=== PATIENT | male | born 1950 | race Caucasian/White ===

== ENCOUNTER 2018-08-21 14:40 | Inpatient (IN) | payer OTHER ==
--- NOTE | 2018-08-21 16:34 | PDOC ---
History of Present Illness - General Chief Complaint: Pain, Acute Stated Complaint: HERNIA/ABD PAIN Time Seen by Provider: 08/21/18 16:34 History Source: Patient Exam Limitations: Other - History of Present Illness Initial Comments: 08/21/18 17:05 HPI and ROS limited secondary to poor patient compliance. 67 year old male with unknown PMH on Eliquis presented to ED for pain at his umbilical hernia site xmany months, worsening over the last two days. Pt reported the hernia will reduce. Pt denied nausea, vomiting, diarrhea, chest pain, shortness of breath, fever, chills. When asked further about his medical history including why he is on Eliquis he stated "Come on Miss, what kind of question is that?". Pt reported he was seen at [facility] 30 times this year, when asked what he was seen for he stated "Come on Miss, what kind of question is that?" Surgical history: hernia repair x3 Past History - Past Medical History Allergies/Adverse Reactions: Allergies Allergy/AdvReac Type Severity Reaction Status Date / Time No Known Allergies Allergy Verified 08/21/18 14:54 Home Medications: Ambulatory Orders Amiodarone HCl 200 mg PO DAILY 08/21/18 Apixaban [Eliquis -] 5 mg PO BID 08/21/18 Atorvastatin Ca [Lipitor] 20 mg PO HS 08/21/18 Digoxin [Digitek] 125 mcg PO DAILY 08/21/18 Metoprolol Tartrate [Lopressor -] 25 mg PO DAILY 08/21/18 Simethicone [Gas Relief 80] 80 mg PO TID 08/21/18 Spironolactone 25 mg PO DAILY 08/21/18 Torsemide 60 mg PO BID 08/21/18 Cardiac Disorders: Yes (ppmd NM) COPD: No HTN: Yes - Surgical History Abdominal Surgery: Yes (hernia) Cardiac Surgery: Yes (aortic vaulve replacement) - Suicide/Smoking/Psychosocial Hx Smoking History: Former smoker Have you smoked in the past 12 months: No Information on smoking cessation initiated: No Hx Alcohol Use: No Drug/Substance Use Hx: No Review of Systems - Review of Systems Able to Perform ROS?: Yes Comments:: 08/21/18 17:06 General: denied fever, chills, generalized weakness. HEENT: denied sore throat, rhinorrhea, ear pain. Heart: denied chest pain, palpitations, syncope, diaphoresis. Respiratory: denied shortness of breath, cough, sputum production, hemoptysis. Abdomen: admitted to abdominal pain. denied nausea, vomiting, diarrhea, constipation, blood in stool. : denied dysuria, increased urinary frequency, hematuria, urinary incontinence , flank pain. Back: denied back pain. Musculoskeletal: denied joint pain, muscle pain, joint swelling. Neurological: denied headache, dizziness, numbness, tingling, weakness. Skin: denied rash, laceration, abrasion. *Physical Exam - Vital Signs Last Vital Signs Temp Pulse Resp BP Pulse Ox 98.4 F 65 20 100/73 95 08/21/18 14:55 08/21/18 14:55 08/21/18 14:55 08/21/18 14:55 08/21/18 14:55 - Physical Exam Comments: 08/21/18 17:07 Constitutional: Well-nourished, Well-developed, appearing stated age. HEENT: head is normocephalic, atraumatic. EOMI. PERRLA. Neck: supple. Full ROM. Heart: regular rhythm. no murmurs, rubs or gallops. Lungs: clear to auscultation bilaterally. no crackles, rhonchi or wheezing. no stridor. Abdomen: soft, protuberant. umbilical hernia, will reduce. tenderness to umbilicus. normal bowel sounds. no rebound, guarding, masses. Extremities: peripheral pulses intact. no lower extremity edema. Neurological: CN 2-12 grossly intact. moves all four extremities. Psych: awake, alert, oriented x3. follows commands. answers questions appropriately. ED Treatment Course - LABORATORY CBC & Chemistry Diagram: 08/22/18 05:24 08/22/18 05:24 Medical Decision Making - Medical Decision Making 08/21/18 17:14 67 year old male with unknown PMH presented to ED for umbilical hernia pain. Hernia will reduce on examination. Initial Vital Signs Temp Pulse Resp BP Pulse Ox 98.4 F 65 20 100/73 95 08/21/18 14:55 08/21/18 14:55 08/21/18 14:55 08/21/18 14:55 08/21/18 14:55 Afebrile. No tachycardia. No tachypnea. Mild hypotension. No hypoxia on room air. EKG performed 1658: rate 65, left axis, ventricular pacer rhythm, lateral T wave flattening. No prior EKG to compare. Imaging ordered: CXR, CT abdomen/pelvis with IV contrast Medications ordered: tylenol IV, normal saline bolus 1000 cc CBC WBC 6.1 K/mm3 (4.0-10.0) 08/21/18 16:55 RBC 4.36 M/mm3 (4.00-5.60) 08/21/18 16:55 Hgb 13.2 GM/dL (11.7-16.9) 08/21/18 16:55 Hct 41.0 % (35.4-49) 08/21/18 16:55 MCV 94.0 fl (80-96) 08/21/18 16:55 MCH 30.2 pg (25.7-33.7) 08/21/18 16:55 MCHC 32.2 g/dl (32.0-35.9) 08/21/18 16:55 RDW 18.5 % (11.9-15.9) H 08/21/18 16:55 Plt Count 165 K/MM3 (134-434) 08/21/18 16:55 MPV 8.7 fl (7.5-11.1) 08/21/18 16:55 Absolute Neuts (auto) 4.7 K/mm3 (1.5-8.0) 08/21/18 16:55 Neutrophils % 76.7 % (42.8-82.8) 08/21/18 16:55 Lymphocytes % 9.8 % (8-40) 08/21/18 16:55 Monocytes % 11.9 % (3.8-10.2) H 08/21/18 16:55 Eosinophils % 0.9 % (0-4.5) 08/21/18 16:55 Basophils % 0.7 % (0-2.0) 08/21/18 16:55 Nucleated RBC % 0 % (0-0) 08/21/18 16:55 No leukocytosis. No anemia. 08/21/18 17:41 CMP Sodium 138 mmol/L (136-145) 08/21/18 16:55 Potassium 4.1 mmol/L (3.5-5.1) 08/21/18 16:55 Chloride 102 mmol/L (98-107) 08/21/18 16:55 Carbon Dioxide 26 mmol/L (21-32) 08/21/18 16:55 Anion Gap 10 MMOL/L (8-16) 08/21/18 16:55 BUN 33 mg/dL (7-18) H 08/21/18 16:55 Creatinine 2.2 mg/dL (0.55-1.3) H 08/21/18 16:55 Est GFR (CKD-EPI)AfAm 34.64 08/21/18 16:55 Est GFR (CKD-EPI)NonAf 29.89 08/21/18 16:55 Random Glucose 87 mg/dL (74-106) 08/21/18 16:55 Lactic Acid 2.6 mmol/L (0.4-2.0) H* 08/21/18 16:55 Calcium 9.0 mg/dL (8.5-10.1) 08/21/18 16:55 Magnesium 2.5 mg/dL (1.8-2.4) H 08/21/18 16:55 Total Bilirubin 2.7 mg/dL (0.2-1) H 08/21/18 16:55 AST 22 U/L (15-37) 08/21/18 16:55 ALT 19 U/L (13-61) 08/21/18 16:55 Alkaline Phosphatase 161 U/L (45-117) H 08/21/18 16:55 Troponin I 0.03 ng/ml (0.00-0.05) 08/21/18 16:55 Total Protein 7.0 g/dl (6.4-8.2) 08/21/18 16:55 Albumin 3.2 g/dl (3.4-5.0) L 08/21/18 16:55 Lipase 101 U/L (73-393) 08/21/18 16:55 ERIK -No prior to compare Lactic acidosis -IVF running Normal lipase No clinically significant electrolyte abnormalities Elevated bilirubin Elevated ALP CT abdomen/pelvis with IV contrast canceled. CT abdomen/pelvis with PO contrast ordered. 08/21/18 18:44 Pt reassessed, reported pain improved. Pt was not drinking omnipaque, reported it was "taken away from me" Pt given additional omnipaque. 08/21/18 18:57 CXR report: Chest : Abdominal pain A single AP view of the chest is been submitted. There are no prior studies for comparison. There is chin artifact, normal heart, normal aorta, prominent hilar congestive changes, sternal sutures and a multilead pacemaker. There is a right effusion and right base atelectasis or infiltrate. The left angle is sharp. Correlation recommended. 08/21/18 19:14 Pt signed out to Dr. Rudolph Pending CT abdomen/pelvis to rule out incarcarated hernia. Pending fluid hydration and repeat lactic acid. BNP added on. [facility] was called, reported they have two critical patients and cannot come to the phone right now. 08/22/18 16:05 Follow up: CT abdomen/pelvis report: Clinical information: umbilical hernia pain, evaluate for strangulation Multiplanar imaging was performed utilizing oral contrast. As requested intravenous contrast was not administered. An umbilical/periumbilical hernia is seen containing a mildly small bowel loop. No proximal bowel dilatation is visualized. Administered oral contrast is noted to traverse the small bowel and opacify the colon. There is no obvious small bowel wall edema. A small amount of ascitic fluid is seen within the hernia sac as well as within the upper and lower abdomen bilaterally. There is partial imaging of a right pleural effusion which is probably moderate to large in size. A very small left pleural effusion is seen. Cardiomegaly is noted. Status post median sternotomy. Transvenous cardiac pacemaker in place. Distention of the hepatic veins and inferior vena cava is noted presumably secondary to cardiac dysfunction. Prominent bilateral flank subcutaneous edema. Subcutaneous edema is also visualized at the level of the partially imaged upper thighs. No evidence of pneumoperitoneum. Possible cholelithiasis versus representing gallbladder wall calcification. No biliary tract dilatation is visualized. The liver, spleen, pancreas, adrenal glands and kidneys demonstrate no obvious noncontrast pathology. There is no aortic aneurysm. No obvious lymphadenopathy is seen. The appendix appears unremarkable. No obvious CT evidence of acute diverticulitis. Impression: A moderate-sized umbilical/periumbilical hernia is seen containing a mildly dilated small bowel loop. There is no definite CT evidence of bowel strangulation. Correlate clinically. Administered oral contrast is seen to traverse length of the small bowel and opacify the colon. A small amount of ascites is seen within the abdomen, pelvis and also within the previously noted hernia sac. Moderate to large right-sided and very small left-sided pleural effusions are seen. Cardiomegaly is noted. Bilateral flank subcutaneous edema. Status post median sternotomy. Transvenous cardiac pacemaker in place. Possible cholelithiasis versus representing gallbladder wall calcification. *DC/Admit/Observation/Transfer Diagnosis at time of Disposition: ERIK (acute kidney injury), CHF exacerbation Umbilical hernia Qualifiers: Obstruction and gangrene presence: without obstruction or gangrene Qualified Code(s): K42.9 - Umbilical hernia without obstruction or gangrene - Discharge Dispostion Condition at time of disposition: Guarded - Referrals - Patient Instructions - Post Discharge Activity
[2018-08-21] MEDS ORDERED: SODIUM CHLORIDE 1,000 ML IV STA (16:36)
[2018-08-21] MEDS ORDERED: ACETAMINOPHEN 1000 MG/100 ML VIAL (NON FORMULARY) IVPB ONE (16:36)
[2018-08-21] MEDS ORDERED: ACETAMINOPHEN INJECTION 100 ML IVPB ONE (17:03)
[2018-08-21 17:07] LABS: BASO % 0.7 % (0-2.0); EOS % 0.9 % (0-4.5); HEMOGLOBIN 13.2 GM/dL (11.7-16.9); LYMPH % 9.8 % (8-40); MCH 30.2 pg (25.7-33.7); MCHC 32.2 g/dl (32.0-35.9); MEAN PLT VOLUME 8.7 fl (7.5-11.1); MONO % 11.9 % (3.8-10.2); NEUT % 76.7 % (42.8-82.8); PLATELET COUNT 165 K/MM3 (134-434); RBC 4.36 M/mm3 (4.00-5.60); RDW 18.5 % (11.9-15.9); WHITE BLOOD COUNT 6.1 K/mm3 (4.0-10.0)
[2018-08-21 17:33] LABS: INR 1.87 (0.83-1.09); PROTHROMBIN TIME (PATIENT) 22.2 SEC (9.7-13.0)
[2018-08-21 17:35] LABS: ALBUMIN 3.2 g/dl (3.4-5.0); BILIRUBIN,TOTAL 2.7 mg/dL (0.2-1); CREATININE 2.2 mg/dL (0.55-1.3)
[2018-08-21 17:36] LABS: ACTIVATED PTT 38.1 SECONDS (25.2-36.5); MAGNESIUM 2.5 mg/dL (1.8-2.4); POTASSIUM 4.1 mmol/L (3.5-5.1)
--- NOTE | 2018-08-21 19:02 | PDOC ---
Documentation entered by Edelmira French SCRIBE, acting as scribe for Tomas Menon MD. Tomas Menon MD: This documentation has been prepared by the scribe, Edelmira French SCRIBE, under my direction and personally reviewed by me in its entirety. I confirm that the documentation accurately reflects all work, treatment, procedures, and medical decision making performed by me. Attending Attestation - Resident Resident Name: PerlitaMoriah - ED Attending Attestation I have performed the following: I have examined & evaluated the patient, The case was reviewed & discussed with the resident, I agree w/resident's findings & plan, Exceptions are as noted - HPI HPI: 08/21/18 17:41 The patient is a 67-year-old male with a past medical history significant for abdominal hernia s/p repair, CHF s/p AICD ([facility]), AVR on Eliquis, HTN, HL presents to the emergency department with abdominal pain. The patient presents with a month of umbilical hernia pain, that worsened 2 days ago. The patient reports he is able to reduce the hernia. Also reports SOB and reduced exercise tolerance to 15 feet over the last week. Denies CP, dizzness, headache, weakness /numbness. Denies fever, chills, nausea, diarrhea, or constipation. Allergies: NKDA Surgical history: Hernia repair and aortic valve replacement. Social history: Former smoker. PCP: None reported. - Physicial Exam PE: 08/21/18 17:42 GENERAL: Awake, alert, and fully oriented, in no acute distress. Disheveled HEAD: No signs of trauma EYES: EOMI, sclera anicteric, conjunctiva clear ENT: Oropharynx clear without exudates. Moist mucosa LUNGS: Diminished BS at R lung base. No wheezes, and no crackles HEART: Regular rate and rhythm, normal S1 and S2, no murmurs, rubs or gallops ABDOMEN: Soft, +reducible periumbilical hernial. Normoactive bowel sounds. No guarding, no rebound. No masses EXTREMITIES: UE WWP with FROM, no ttp edema. LE with edema and erythema to the thighs symmetrically. B/l LE wrapped in multiple layers of soaked dressings. No induration. +trench feet BACK: No midline spinal tenderness in cervical/thoracic/lumbar region NEUROLOGICAL: Normal speech, cranial nerves intact, equal strength and sensation b/l SKIN: As noted above - Medical Decision Making 08/21/18 19:18 67yo M with MMP including abdominal hernia, CHF, AVR presents to the ED with abdominal pain Exam with reducible hernia, diminished breath sounds at the R lung base, and symmetric LE edema and erythema with trench feet Have low suspicion for incarcerated or strangulated hernia as hernia is reducible with no skin changes, pt has no N/V and is not toxic appearing. Will proceed with labs, CTAP to r/o hernia related pathology as pt has never been here and c/o abdominal pain around the hernia Diminished BS and LE edema consistent with likely fluid overload state. CXR with likely R sided moderate pleural effusion. Labs including BNP pending Anticipate pt will need admission for CHF exacerbation, but CTAP for abdominal pain also pending Case signed out to overnight attending for further mgmt/dispo
--- NOTE | 2018-08-21 19:26 | PDOC ---
*Physical Exam - Vital Signs Last Vital Signs Temp Pulse Resp BP Pulse Ox 98.4 F 65 20 100/73 95 08/21/18 14:55 08/21/18 14:55 08/21/18 14:55 08/21/18 14:55 08/21/18 14:55 ED Treatment Course - LABORATORY CBC & Chemistry Diagram: 08/21/18 16:55 08/21/18 16:55 - ADDITIONAL ORDERS Additional order review: Laboratory Results 08/21/18 08/21/18 08/21/18 16:55 16:55 16:55 PT with INR INR PTT (Actin FS) Sodium 138 Potassium 4.1 Chloride 102 Carbon Dioxide 26 Anion Gap 10 BUN 33 H Creatinine 2.2 H Est GFR (CKD-EPI)AfAm 34.64 Est GFR (CKD-EPI)NonAf 29.89 Random Glucose 87 Lactic Acid 2.6 H* Calcium 9.0 Magnesium 2.5 H Total Bilirubin 2.7 H AST 22 ALT 19 Alkaline Phosphatase 161 H Troponin I 0.03 Total Protein 7.0 Albumin 3.2 L Lipase 101 Blood Type A POSITIVE Antibody Screen Negative 08/21/18 16:55 PT with INR 22.20 H INR 1.87 H PTT (Actin FS) 38.1 H Sodium Potassium Chloride Carbon Dioxide Anion Gap BUN Creatinine Est GFR (CKD-EPI)AfAm Est GFR (CKD-EPI)NonAf Random Glucose Lactic Acid Calcium Magnesium Total Bilirubin AST ALT Alkaline Phosphatase Troponin I Total Protein Albumin Lipase Blood Type Antibody Screen 08/21/18 16:55 RBC 4.36 MCV 94.0 MCHC 32.2 RDW 18.5 H MPV 8.7 Neutrophils % 76.7 Lymphocytes % 9.8 Monocytes % 11.9 H Eosinophils % 0.9 Basophils % 0.7 - Medications Given in the ED: ED Medications Discontinued Medications Generic Name Dose Route Start Last Admin Trade Name Freq PRN Reason Stop Dose Admin Acetaminophen 1,000 mg 08/21/18 16:36 08/21/18 17:15 Ofirmev Injection - IVPB 08/21/18 16:37 1,000 mg ONCE ONE Administration Sodium Chloride 1,000 mls @ 1,000 mls/hr 08/21/18 16:36 08/21/18 17:15 Normal Saline - IV 08/21/18 17:35 1,000 mls/hr ASDIR STA Administration Medical Decision Making - Medical Decision Making 08/21/18 19:25 Pt signed out to me from Dr. Bhat. 67M who presents with abd pain pending CTAP and repeat lactic. Labs notable for elevated t-bili and alk phos w/o comparisons at our facility. [facility] attempted to be called but state they have 2 critical patients and cannot answer the phone. Pending imaging and repeat labs. 08/21/18 19:56 On exam, pt has cellulitic feet up to knees w/ trenchfoot. Pt also complains of CAMARA when he walks more than 10 feet. BNP elevated. Will admit for CHF exacerbation. 08/22/18 00:01 CT does not show SBO. Will admit. Pt endorsed to Dr. Arshad for admission. *DC/Admit/Observation/Transfer Diagnosis at time of Disposition: ERKI (acute kidney injury) Umbilical hernia Qualifiers: Obstruction and gangrene presence: without obstruction or gangrene Qualified Code(s): K42.9 - Umbilical hernia without obstruction or gangrene CHF exacerbation Qualifiers: Heart failure type: unspecified Qualified Code(s): I50.9 - Heart failure, unspecified - Discharge Dispostion Condition at time of disposition: Guarded Decision to Admit order: Yes - Referrals - Patient Instructions - Post Discharge Activity
[2018-08-21 19:37] LABS: N-TERMINAL BNP 5725.7 pg/ml (5-125)
--- NOTE | 2018-08-21 23:37 | PN ---
Teaching Attending Note Name of Resident: Danae Arshad ATTENDING PHYSICIAN STATEMENT I saw and evaluated the patient. I reviewed the resident's note and discussed the case with the resident. I agree with the resident's findings and plan as documented. SUBJECTIVE: Patient is a 67-year-old man with PMH of aortic valve replacement, AICD/ pacemaker, CHF, chronic venous stasis, abdominal hernia (with x3 surgery) and on Eliquis for ?unknown reasons, presents to the ER with abdominal pain. The patient presents with a month of umbilical hernia pain, that worsened 2 days ago. The patient reports he is able to reduce the hernia. Denies fever, chills, diarrhea, or constipation. Pt is a poor historian. Does not know why he is on eliquis. States he has been seen at [facility] 30 times but will not elaborate why. He also goes to [facility]. Cannot remember the last time he was admitted to the hospital. Says he spent about 7 weeks in the hospital around 2017. OBJECTIVE: Alert Vital Signs Period Temp Pulse Resp BP Sys/Ann Pulse Ox Last 24 Hr 98.1 F-98.4 F 65-65 17-20 100-101/72-73 95-96 HEENT: No Jaundice, eye redness or discharge, PERRLA, EOMI. Normocephalic, atraumatic. External ears are normal and hearing is grossly intact. No nasal discharge. Neck: Supple, nontender. No palpable adenopathy or thyromegaly. No JVD Chest: Good effort. Clear to auscultation and percussion. Heart: Regular. No S3, rub or murmur Abdomen: Not distended, soft, nontender and no HSM. Reducible umblical hernia. No rebound or guarding. Normal bowel sounds. Ext: Peripheral pulses intact. No leg edema. Chronic venous stasis with bilateral edema, L>R; nonpitting on the right; erythema most pronounced on both feet and toes and up to above the knees; tender on both legs; small papule shaped ulcers on both legs with a big ulcer on left leg just inferolateral to the knee; copious amounts of fluid draining from both legs, despite the bandaging Skin: Warm and dry. No petechiae, rash or ecchymosis. Neuro: Alert. Oriented x3. CN 2-12 grossly intact. Sensation grossly intact in all four extremities and DTR are symmetric. Psych: Appropriate mood and affect. Good insight. Home Medications Medication Instructions Recorded Amiodarone HCl 200 mg PO DAILY 08/21/18 Apixaban [Eliquis -] 5 mg PO BID 08/21/18 Atorvastatin Ca [Lipitor] 20 mg PO HS 08/21/18 Digoxin [Digitek] 125 mcg PO DAILY 08/21/18 Metoprolol Tartrate [Lopressor -] 25 mg PO DAILY 08/21/18 Simethicone [Gas Relief 80] 80 mg PO TID 08/21/18 Spironolactone 25 mg PO DAILY 08/21/18 Torsemide 60 mg PO BID 08/21/18 Abnormal Lab Results 08/21/18 08/21/18 08/21/18 16:55 16:55 16:55 RDW 18.5 H Monocytes % 11.9 H PT with INR 22.20 H INR 1.87 H PTT (Actin FS) 38.1 H BUN 33 H Creatinine 2.2 H Lactic Acid Magnesium 2.5 H Total Bilirubin 2.7 H Alkaline Phosphatase 161 H B-Natriuretic Peptide 5725.7 H Albumin 3.2 L 08/21/18 16:55 RDW Monocytes % PT with INR INR PTT (Actin FS) BUN Creatinine Lactic Acid 2.6 H* Magnesium Total Bilirubin Alkaline Phosphatase B-Natriuretic Peptide Albumin ASSESSMENT AND PLAN: 1. Abdominal pain - Though his chief complaint to the ER staff was abdominal pain, when i saw him, he was painfree and insisted he wanted us to address his multiple chronic cormorbid issues that he says were not addressed at [facility]. He denied any acute SOB or worsening of his baseline CAMARA. Chest xray showed hilar congestion and right pleural effusion. CT scan of the abdomen/ pelvis showed umblical/periumblical hernia without evidence of strangulation; cardiomegaly; bilateral effusion R>L; cholelithiasis; distension of hepatic vein and the inferior vena cava. EKG shows ventricular paced rhythm with diffuse t-wave flattening and initial troponin is negative. In view of cholelithiasis and elevated bilirubin, will get a sonogram of RUQ and trend LFTs. Elevated serum magnesium may be due Simethicone therapy in the setting of CKD. Will hold Simethicone and monitor serum magnesium. Will continue his routine care for CHF, get daily standing weight and restrict dietary salt intake. Will send wound culture from left leg ulcers and treat cellulitis with Linezolid ; elevate legs at night. Consult ID and Wound care. Most important in this patient is to obtain his medical records during the day from [facility]. Need to clarify several gaps in information that he cannot provide - like why he is on Eliquis. 2. Hypoalbuminemia - Possibly due to combined effects of malnutrition and inflammation associated with comorbid chronic conditions. Will ensure adequate dietary protein intake and also consult women's apparel salesperson. 3. ERIK? - May have reduced renal perfusion due to CHF as well as effects of excessive diuresis. Will get renal sonogram, urinalysis, PTH and phosphate. Avoid nephrotoxic agents such as NSAIDS, aminoglycosides, contrast dyes and certain Alternative medicine products. 4. Obesity Counseled on the risks associated with obesity. Will provide patient all the necessary assistance, counseling and positive reinforcement to facilitate weight loss. Consult women's apparel salesperson. 5. DVT prophylaxis - On Eliquis 6. Advance directives - Full code
--- NOTE | 2018-08-22 00:56 | HP ---
CHIEF COMPLAINT: abd pain PCP: none HISTORY OF PRESENT ILLNESS: Patient is a 67 yo M, POOR historian, with a PMHx of HTN, A-fib?, CAD (s/p pacemaker, AICD), an extensive cardiac history, abdominal hernia (with x3 surgery), presented to the ED from Physical therapy because of abdominal pain at the site of his abdominal hernia. He says he was in the middle of therapy when his abdomen started hurting him, radiating to the center of his chest. He felt as if a knife was stabbing him. They called EMS at the rehab center and brought him in for further evaluation. He admits the pain is on and off but has worsened in the last few days. He mentions going to [facility] over 30x. He also has chronic lymphedema, and venous insufficiency from his cardiac history, with complaints of open wounds in his left lower extremity. He went to [facility] yesterday where they wrapped his leg. He complains of worsening edema, redness, and pain in b/l LE with a lot of drainage. He says he goes to wound care regularly for his legs. In the ED, patients pain resolved. He is currently asymptomatic. He says he has chronic sob on dyspnea but not at rest. His last echo was done in the last year but does not know the results. He says he goes to [facility] for everythign and sees Dr. Rojas, and Hazel (unsure of the spelling)/ He Patient denies CP, nausea, vomiting, fevers, chills, dizziness, headaches, Sob at rest, urinary changes. ER course was notable for: (1) CXR: R effusion, prominent hilar congestive changes. (2) Abd CT/AP: Small ascites, moderate size umbilical hernia, no signs of incarceration, R and L pleural effusion > R side. Distention of the hepatic veins and IVC from cardiac dysfunction. (3)T. bili 2.7, Lactic acid 2.6, alk phos 161 Recent Travel: denies PAST MEDICAL HISTORY: Poor historian. Limited History. Per HPI Social History: Smoking: quit 6/7 years ago Alcohol: denies Drugs: denies. tried cocaine in the 60's. Allergies No Known Allergies Allergy (Verified 08/21/18 14:54) HOME MEDICATIONS: Home Medications Medication Instructions Recorded Amiodarone HCl 200 mg PO DAILY 08/21/18 Apixaban [Eliquis -] 5 mg PO BID 08/21/18 Atorvastatin Ca [Lipitor] 20 mg PO HS 08/21/18 Digoxin [Digitek] 125 mcg PO DAILY 08/21/18 Metoprolol Tartrate [Lopressor -] 25 mg PO DAILY 08/21/18 Simethicone [Gas Relief 80] 80 mg PO TID 08/21/18 Spironolactone 25 mg PO DAILY 08/21/18 Torsemide 60 mg PO BID 08/21/18 REVIEW OF SYSTEMS CONSTITUTIONAL: Absent: fever, chills, diaphoresis, generalized weakness, malaise, loss of appetite, weight change HEENT: Absent: rhinorrhea, nasal congestion, throat pain, throat swelling, difficulty swallowing, mouth swelling, ear pain, eye pain, visual changes CARDIOVASCULAR: chest pain, peripheral edema Absent: syncope, palpitations, irregular heart rate, lightheadedness RESPIRATORY: CAM[place] Absent: cough, shortness of breath, orthopnea, wheezing, stridor, hemoptysis GASTROINTESTINAL: abd pain Absent: abdominal distension, nausea, vomiting, diarrhea, constipation, melena, hematochezia GENITOURINARY: Absent: dysuria, frequency, urgency, hesitancy, hematuria, flank pain, genital pain SKIN: open wounds on RLE Absent: rash, itching, pallor NEUROLOGIC: Absent: headache, focal weakness or paresthesias, dizziness, unsteady gait, seizure, mental status changes, bladder or bowel incontinence PHYSICAL EXAMINATION Vital Signs - 24 hr 08/21/18 08/21/18 14:55 19:15 Temperature 98.4 F 98.1 F Pulse Rate 65 Pulse Rate [ 65 Right] Respiratory 20 17 Rate Blood Pressure 100/73 Blood Pressure 101/72 [Left] O2 Sat by Pulse 95 96 Oximetry (%) GENERAL: unhygienic, obese HEAD: Normal with no signs of trauma. EYES: extraocular movements intact EARS, NOSE, THROAT: oropharynx clear without exudates. Moist mucous membranes. NECK: supple without lymphadenopathy, JVD, or masses. LUNGS: decrease breath sounds on the R. side. bibasilar crackles. HEART: RRR ABDOMEN: obese, abdominal hernia which is reducible. no tenderness to palpation. EXTREMITIES: 2+ pulses. lymphedema with chronic venous insufficiency. erythema b /l and tender to touch on the b/l feet. pitting edema b/l. R foot cold, purple in color, dp pulses palpable b/l. open wound on the lateral aspect of RLE under the knee. NEUROLOGICAL: Cranial nerves II-XII intact. Laboratory Results - last 24 hr 08/21/18 08/21/18 08/21/18 16:55 16:55 16:55 WBC 6.1 RBC 4.36 Hgb 13.2 Hct 41.0 MCV 94.0 MCH 30.2 MCHC 32.2 RDW 18.5 H Plt Count 165 MPV 8.7 Absolute Neuts (auto) 4.7 Neutrophils % 76.7 Lymphocytes % 9.8 Monocytes % 11.9 H Eosinophils % 0.9 Basophils % 0.7 Nucleated RBC % 0 PT with INR 22.20 H INR 1.87 H PTT (Actin FS) 38.1 H Sodium 138 Potassium 4.1 Chloride 102 Carbon Dioxide 26 Anion Gap 10 BUN 33 H Creatinine 2.2 H Est GFR (CKD-EPI)AfAm 34.64 Est GFR (CKD-EPI)NonAf 29.89 Random Glucose 87 Lactic Acid Calcium 9.0 Magnesium 2.5 H Total Bilirubin 2.7 H AST 22 ALT 19 Alkaline Phosphatase 161 H Troponin I 0.03 B-Natriuretic Peptide 5725.7 H Total Protein 7.0 Albumin 3.2 L Lipase 101 Blood Type Antibody Screen 08/21/18 08/21/18 16:55 16:55 WBC RBC Hgb Hct MCV MCH MCHC RDW Plt Count MPV Absolute Neuts (auto) Neutrophils % Lymphocytes % Monocytes % Eosinophils % Basophils % Nucleated RBC % PT with INR INR PTT (Actin FS) Sodium Potassium Chloride Carbon Dioxide Anion Gap BUN Creatinine Est GFR (CKD-EPI)AfAm Est GFR (CKD-EPI)NonAf Random Glucose Lactic Acid 2.6 H* Calcium Magnesium Total Bilirubin AST ALT Alkaline Phosphatase Troponin I B-Natriuretic Peptide Total Protein Albumin Lipase Blood Type A POSITIVE Antibody Screen Negative ASSESSMENT/PLAN: 67 yo M, POOR historian, with a PMHx of HTN, A-fib?, CAD (s/p pacemaker, AICD) , an extensive cardiac history, presented to the ED from Physical therapy because of abdominal pain at the site of his abdominal hernia found to have congestive changes on xray. #Lactic Acidosis -possibly infectious in etiology from infected LLE wound -cannot r/o LLE cellulitis -2.6 LA -FU repeat levels -IV linezolid. Avoiding Vancomycin because of possible ERIK -wound culture #LLE Wounds/erythema/tenderness -cannot rule out Cellulitis -IV abx -wound cultures -ID consulted -Wound care: Dr. Dietz -duplex LE -arteriel duplex LE #CHF -CXR: R effusion, prominent hilar congestive changes -patient says this is chronic and his cardiologists have been adjusting his diuretics very frequently. We will need to obtain records from [facility] to understand his cardiac history. Patient is a poor historian and we will need more data. Obtain recent echo. -patient not in exacerbation -BNP 5000 -obtain records from [facility] -cont torsemide 60mg BID -med rec patient in AM #ABD pain -currently asymptomatic -CTAP with no signs of bowel strangulation -RUQ US #Elevated T. Bili, Alk phos -FU RUQ US -D. bili #chronic lymphedema -wound care #Afib? -patient unable to answer if he has a-fib -but he is on Amio, digoxin, and eliquis. -currently in sinus rhythm -consider continuing medications in AM once med rec. #ERIK vs CKD -patient says he has a history of kidney disease. He follows Dr. Blue. -obtain medical records for more information. #CAD -cont home meds. -MED REC in am #FEN - no iv fluids -monitor lytes -sodium diet #dvt ppx -on eliquis Obtain medical records from [facility]. Visit type - Emergency Visit Emergency Visit: Yes ED Registration Date: 08/22/18 Care time: The patient presented to the Emergency Department on the above date and was hospitalized for further evaluation of their emergent condition. - New Patient This patient is new to me today: Yes Date on this admission: 08/26/18 - Critical Care Critical Care patient: No
[2018-08-22] MEDS ORDERED: LINEZOLID 600 MG PREMIX BAG 600 MG in PREMIX 300 IVPB SCH (01:30)
[2018-08-22] MEDS ORDERED: morphine CARPU-JECT 4 MG/1 ML DISP.SYRIN IVPUSH ONE (01:36)
[2018-08-22] MEDS ORDERED: SIMETHICONE 80 MG TAB.CHEW (FP) PO ONE (01:50)
[2018-08-22] MEDS ORDERED: MORPHINE SULFATE 2 MG/ML VIAL ONE (02:16)
[2018-08-22] MEDS ORDERED: LINEZOLID 600 MG PREMIX BAG 600 MG/300 ML BAG IVPB SCH ×3 (02:30→22:00)
[2018-08-22] MEDS ORDERED: LINEZOLID 600 MG PREMIX BAG 600 MG/300 ML BAG IVPB ONE (02:30)
[2018-08-22] MEDS ORDERED: ACETAMINOPHEN 1000 MG/100 ML VIAL (NON FORMULARY) IVPB ONE (03:35)
[2018-08-22] MEDS ORDERED: ACETAMINOPHEN INJECTION 100 ML IVPB ONE (04:00)
[2018-08-22 05:40] LABS: BASO % 0.7 % (0-2.0); EOS % 2.1 % (0-4.5); HEMATOCRIT 39.4 % (35.4-49); HEMOGLOBIN 12.8 GM/dL (11.7-16.9); LYMPH % 14.2 % (8-40); MCH 30.4 pg (25.7-33.7); MCHC 32.5 g/dl (32.0-35.9); MEAN CELL VOLUME 93.5 fl (80-96); MEAN PLT VOLUME 8.3 fl (7.5-11.1); MONO % 18.1 % (3.8-10.2); NEUT % 64.9 % (42.8-82.8); PLATELET COUNT 182 K/MM3 (134-434); RBC 4.21 M/mm3 (4.00-5.60); RDW 18.2 % (11.9-15.9); WHITE BLOOD COUNT 6.6 K/mm3 (4.0-10.0)
[2018-08-22 06:09] LABS: ALBUMIN 3.3 g/dl (3.4-5.0); BILIRUBIN,TOTAL 2.8 mg/dL (0.2-1); CALCIUM 8.9 mg/dL (8.5-10.1); CREATININE 2.1 mg/dL (0.55-1.3); MAGNESIUM 2.7 mg/dL (1.8-2.4); PHOSPHOROUS 3.7 mg/dL (2.5-4.9); POTASSIUM 3.9 mmol/L (3.5-5.1); TOT PROT 6.9 g/dl (6.4-8.2)
[2018-08-22] MEDS: TORSEMIDE 20 MG TABLET (FP) PO SCH (08:39)
[2018-08-22] MEDS ORDERED: METOPROLOL TARTRATE 25 MG TABLET (FP) PO SCH (10:00)
[2018-08-22] MEDS ORDERED: DIGOXIN 0.125 MG TABLET (FP) PO SCH (10:00)
[2018-08-22] MEDS: APIXABAN 5 MG TABLET PO SCH ×2 (10:34→22:15)
[2018-08-22] MEDS: AMIODARONE HCL 200 MG TABLET (FP) PO SCH (10:34)
[2018-08-22] MEDS: SPIRONOLACTONE 25 MG TABLET (FP) PO SCH (10:34)
--- NOTE | 2018-08-22 11:00 | PN ---
Progress Note (short form) - Note Progress Note: ID CONSULT DICTATED BILATERAL LE CELLULITIS R/O SEPSIS SECONDARY TO SKIN SOURCE LACTIC ACIDOSIS AZOTEMIA HX AVR OBTAIN BLOOD C/S EMPIRIC ZOSYN/ VANCOMYCIN ADJUSTED FOR AZOTEMIA
--- NOTE | 2018-08-22 13:55 | CONS ---
DATE OF CONSULTATION: 08/22/2018 HISTORY OF PRESENT ILLNESS: The patient is a 67-year-old male evaluated for bilateral lower extremity cellulitis. He presented to the hospital on August 22, 2018, with complaints of abdominal pain. He gave a 2-day history of worsening periumbilical pain. The patient apparently had been experiencing pain for approximately 1 month prior to admission, and it became more severe over the past 2 days. He has an umbilical hernia, which he is able to manually reduce. He also complained of dyspnea. He presented to the emergency room where CT scan of the abdomen and pelvis was performed and revealed a moderate-sized umbilical hernia without definite evidence of bowel strangulation. He was noted to have erythema of the lower extremities bilaterally. Patient does not give a reliable history and is unable to provide further details regarding this finding of cellulitis. He denies any traumatic injury, denies any associated fever or chills. PAST MEDICAL HISTORY: Positive for hypertension, atrial fibrillation, coronary artery disease, history of abdominal hernia, congestive heart failure, chronic venous stasis, dermatitis, lower extremity lymphedema. PAST SURGICAL HISTORY: Status post multiple abdominal hernia repairs, aortic valve replacement, implanted defibrillator. ALLERGIES: No known allergies. MEDICATIONS: Amiodarone, Eliquis, Lipitor, digoxin, Lopressor, spironolactone. SOCIAL HISTORY: Patient lives in the community. He is a former smoker. Denies alcohol abuse. SYSTEMS REVIEW: Neurologic: No loss of consciousness, seizure activity, or focal weakness. Cardiac: Negative for chest pain or palpitations. Respiratory: Positive for dyspnea. No cough or sputum production. Gastrointestinal: As per HPI. Genitourinary: Negative for urinary tract infection. LABORATORY DATA: Wwhite blood cell count 6.6, hematocrit 39.4, platelets 182. BUN 33, creatinine 2.1, lactic acid 2.4, total bilirubin 2.8, alkaline phosphatase 155, AST 19. PHYSICAL EXAMINATION: General: He is chronically ill-appearing, awake, in no acute distress. Vital signs: Temperature 97.1, blood pressure 101/68, pulse 71 and regular, respirations 18 per minute. HEENT: Sclerae anicteric. Heart: Heart sounds S1, S2. Lungs: Clear. Abdomen: Soft and obese, nontender, with positive umbilical hernia. Extremities: Bilateral lower extremity edema, bilateral confluent erythema and warmth involving the lower extremities extending from the feet to the area of the thighs with lymphangitic streaking. IMPRESSION: 1. Bilateral lower extremity cellulitis/lymphangitis. 2. Rule out sepsis secondary to skin source. 3. Lactic acidosis. 4. Azotemia. 5. Elevated liver enzymes. 6. History of aortic valve replacement. Pending sepsis workup, empiric antibiotic coverage with vancomycin and Zosyn adjusted for renal insufficiency, local wound care, elevation. Will follow. Thank you for the kind referral. NELSON RICCI M.D. [id number]
[2018-08-22] MEDS: PIPERACILLIN/TAZOB 2.25 GM 2.25 GM in DEXTROSE 5%-WATER - 50 ML IVPB SCH ×2 (14:00→17:26)
--- NOTE | 2018-08-22 15:19 | EKG ---
Test Reason : Blood Pressure : / mmHG Vent. Rate : 065 BPM Atrial Rate : 065 BPM P-R Int : 000 ms QRS Dur : 114 ms QT Int : 444 ms P-R-T Axes : 000 -52 134 degrees QTc Int : 461 ms Ventricular-paced rhythm WITH OCCASIONAL AV dual-paced complexes AND WITH OCCASIONAL PREMATURE VENTRICULAR COMPLEXES ABNORMAL ECG NO PREVIOUS ECGS AVAILABLE Confirmed by NELSON HERNANDEZ MD ([id number]) on 08/22/2018 3:19:08 PM Referred By: Confirmed By:NELSON HERNANDEZ MD
--- NOTE | 2018-08-22 16:27 | PN ---
Teaching Attending Note Name of Resident: Dieter Agudelo ATTENDING PHYSICIAN STATEMENT I saw and evaluated the patient. I reviewed the resident's note and discussed the case with the resident. I agree with the resident's findings and plan as documented. SUBJECTIVE: No fever or chills. Hard to get any information form him as he is poor historian and gets distracted. OBJECTIVE: NAD, gets aggravated easily CV: RRR, no MRG Lungs: CTAB Abd: soft, ND, Liver is palpated 2 cm below costal margin at mid clavicular line. lower mid line hernia which is reducible. Ext: L leg with anterior ulcer with minimal amount of discharge . erythema on leg and foot . DP could not be appreciated with edema. Increased warmth R leg and thigh with erythema , edema , but normal temperature. erythema on front. DP 2+ . fungal infection among toes. ASSESSMENT AND PLAN: 67 y/o man with h/o CHF, AICD, A fib On Eliquis, LE venous stasis, abd wall hernia s/p Sx , who presented with abd painand was found to have cellulitis of LE. 1- Sepsis due to LE cellulitis: - send cx form wound - Abx d/w Id: vanco and zosyn. - vanco trough before 3rd dose on 08/24 - send blood cx 2- CKD: base line in 07/11 1.7 . - cont demadex 60 BID ( claims he has been using 200 a day ) 3- H/o Systolic heart failure: - echo - diuresis as above - records form [facility] indicate an EF of 20 % in 2017 - card consult pending 4- Elevated Alk phos and bili: possibly due to liver congestion . No abd pain - US pending 5- Abd wall hernia: no strangulation on CT scan . Lipas enL. US of abd pending 6- DM : SSI for now 7- H/o A fib : - cont eliquis and will confirm reason - will hold dig in setting of renal dysfunciton - cont amio - get dig level 8- dispo : tele
[2018-08-22] MEDS ORDERED: PIPERACILLIN/TAZOBACTAM 2.25 GM VIAL IVPB ONE (16:39)
[2018-08-22] MEDS ORDERED: DEXTROSE 5%-WATER - 50 ML IVPB ONE (16:40)
--- NOTE | 2018-08-22 17:29 | PN ---
Physical Exam: SUBJECTIVE: Patient seen and examined this AM. States he is having severe pain in his left lower extremity. states his abdominal pain is present but improved, and that it comes and goes. Pt with numerous complaints about prior institution as well as EMS and states that his ID was lost during his transport to this hospital. OBJECTIVE: Vital Signs Period Temp Pulse Resp BP Sys/Ann Pulse Ox Last 24 Hr 97.1 F-98.7 F 64-71 16-18 101-104/65-76 96-99 Pt with minimal compliance to physical exam GEN: A&O, mild distress HEENT: Moist mucus membranes HEART: RRR, no murmurs noted LUNGS: CTA b/l ABDOMEN: Soft, nontender, ventral hernia, reducible EXTREMITIES: LLE wound about 6 cm X 6 cm with slough. minimal serosanguinous drainage PSYCH: Tangential thoughts and speech, tearful about multiple complaints Laboratory Results - last 24 hr 08/21/18 08/21/18 08/21/18 05:24 16:55 16:55 WBC RBC Hgb Hct MCV MCH MCHC RDW Plt Count MPV Absolute Neuts (auto) Neutrophils % Lymphocytes % Monocytes % Eosinophils % Basophils % Nucleated RBC % PT with INR 22.20 H INR 1.87 H PTT (Actin FS) 38.1 H Sodium 138 Potassium 4.1 Chloride 102 Carbon Dioxide 26 Anion Gap 10 BUN 33 H Creatinine 2.2 H Est GFR (CKD-EPI)AfAm 34.64 Est GFR (CKD-EPI)NonAf 29.89 Random Glucose 87 Lactic Acid Calcium 9.0 Phosphorus Magnesium 2.5 H Total Bilirubin 2.7 H Direct Bilirubin AST 22 ALT 19 Alkaline Phosphatase 161 H Troponin I 0.03 B-Natriuretic Peptide 5725.7 H Total Protein 7.0 Albumin 3.2 L Lipase 101 Digoxin 1.18 Blood Type A POSITIVE Antibody Screen 08/21/18 08/21/18 08/22/18 16:55 16:55 03:05 WBC RBC Hgb Hct MCV MCH MCHC RDW Plt Count MPV Absolute Neuts (auto) Neutrophils % Lymphocytes % Monocytes % Eosinophils % Basophils % Nucleated RBC % PT with INR INR PTT (Actin FS) Sodium Potassium Chloride Carbon Dioxide Anion Gap BUN Creatinine Est GFR (CKD-EPI)AfAm Est GFR (CKD-EPI)NonAf Random Glucose Lactic Acid 2.6 H* 2.4 H* Calcium Phosphorus Magnesium Total Bilirubin Direct Bilirubin AST ALT Alkaline Phosphatase Troponin I B-Natriuretic Peptide Total Protein Albumin Lipase Digoxin Blood Type A POSITIVE Antibody Screen Negative 08/22/18 08/22/18 08/22/18 05:24 05:24 05:24 WBC 6.6 RBC 4.21 Hgb 12.8 Hct 39.4 MCV 93.5 MCH 30.4 MCHC 32.5 RDW 18.2 H Plt Count 182 MPV 8.3 Absolute Neuts (auto) 4.3 Neutrophils % 64.9 Lymphocytes % 14.2 D Monocytes % 18.1 H Eosinophils % 2.1 D Basophils % 0.7 Nucleated RBC % 0 PT with INR INR PTT (Actin FS) Sodium 137 Potassium 3.9 Chloride 102 Carbon Dioxide 26 Anion Gap 9 BUN 33 H Creatinine 2.1 H Est GFR (CKD-EPI)AfAm 36.65 Est GFR (CKD-EPI)NonAf 31.62 Random Glucose 99 Lactic Acid Calcium 8.9 Phosphorus 3.7 Magnesium 2.7 H Total Bilirubin 2.8 H Direct Bilirubin 1.9 H AST 19 ALT 19 Alkaline Phosphatase 155 H Troponin I B-Natriuretic Peptide Total Protein 6.9 Albumin 3.3 L Lipase Digoxin Blood Type Antibody Screen 08/22/18 08:45 WBC RBC Hgb Hct MCV MCH MCHC RDW Plt Count MPV Absolute Neuts (auto) Neutrophils % Lymphocytes % Monocytes % Eosinophils % Basophils % Nucleated RBC % PT with INR INR PTT (Actin FS) Sodium Potassium Chloride Carbon Dioxide Anion Gap BUN Creatinine Est GFR (CKD-EPI)AfAm Est GFR (CKD-EPI)NonAf Random Glucose Lactic Acid 2.0 Calcium Phosphorus Magnesium Total Bilirubin Direct Bilirubin AST ALT Alkaline Phosphatase Troponin I B-Natriuretic Peptide Total Protein Albumin Lipase Digoxin Blood Type Antibody Screen Active Medications Generic Name Dose Route Start Last Admin Trade Name Freq PRN Reason Stop Dose Admin Amiodarone HCl 200 mg 08/22/18 10:00 08/22/18 10:34 Cordarone - PO 200 mg DAILY ESTRELLITA Administration Apixaban 5 mg 08/22/18 10:00 08/22/18 10:34 Eliquis - PO 5 mg BID ESTRELLITA Administration Atorvastatin Calcium 20 mg 08/22/18 22:00 Lipitor - PO HS ESTRELLITA Vancomycin HCl 1,000 mg in 250 mls @ 200 mls/hr 08/22/18 11:00 Vancomycin (Pre-Docked) IVPB Q24H [facility] Protocol Piperacillin Sod/Tazobactam 50 mls @ 100 mls/hr 08/22/18 11:00 08/22/18 14:00 Sod 2.25 gm/ Dextrose IVPB 100 mls/hr Q8H-IV ESTRELLITA Administration Protocol Metoprolol Tartrate 25 mg 08/22/18 10:00 08/22/18 10:34 Lopressor - PO 25 mg DAILY ESTRELLITA Administration Spironolactone 25 mg 08/22/18 10:00 08/22/18 10:34 Aldactone - PO 25 mg DAILY ESTRELLITA Administration Torsemide 60 mg 08/23/18 06:00 Demadex - PO BID@0600,1400 ESTRELLITA ASSESSMENT/PLAN: 67 yo M, POOR historian, with a PMHx of HTN, A-fib, CAD (s/p pacemaker, AICD), an extensive cardiac history, abdominal hernia (with x3 surgery), presented to the ED from Physical therapy because of abdominal pain at the site of his abdominal hernia. Sepsis 2/2 LE Cellulitis -ID consulted and case discussed -Vanc/Zosyn -Wound cultures pending -Pt refused blood culture draw Abdominal pain with known ventral hernia -No strangulation noted on CT -abdominal pain improved at this point CKD -Cr slightly above baseline of 1.7 at 2.1 -Trend BUN/Cr A-fib -on digoxin, toprol 25, amiodarone 200 mg daily -Currently rate controlled -Cardiology consulted and case discussed -Digoxin 125 mcg every other day -Amiodarone likely due to ventricular arrhythmia in the past, would recommend f/ u as outpatient to attempt to switch away due to extensive side effects of amiodarone Aortic valve replacement/repair -seems like pt had complication during PCI previously as per discussion with cardiology -Echo pending Chronic systolic heart failure -Echo noted from previous records at [facility], EF 20-25% -Currently appears fluid overloaded -Torsemide 60 mg BID confirmed with records -Spironolactone 25 mg Daily -Toprol XL 25 mg PO Daily -Echo pending Elevated Alk Phos and T-bili -RUQ US pending -liver congestion noted on CT scan -Trend values for improvement as pt clinically without abdominal pain at this point FEN -none -monitor and replete -Na controlled diet DVT Prophylaxis -Eliquis 5 mg PO BID Disposition Telemetry Visit type - Emergency Visit Emergency Visit: Yes ED Registration Date: 08/22/18 Care time: The patient presented to the Emergency Department on the above date and was hospitalized for further evaluation of their emergent condition. - New Patient This patient is new to me today: Yes Date on this admission: 08/22/18 - Critical Care Critical Care patient: No
[2018-08-22] MEDS: VANCOMYCIN 1 GRAM (PRE-DOCKED) 1,000 MG/250 ML BAG IVPB SCH (17:51)
--- NOTE | 2018-08-22 19:12 | CON.CARD ---
Consult Consult Specialty:: cardiology Reason for Consultation:: SOB; hx AoVR - History of Present Illness Chief Complaint: Pt A&Ox3; no chest pain or dyspnea; c/o abdominal discomfort at site of umbilical hernia; c/o bilateral LE discomfort History of Present Illness: The patient is a 67-year-old white male with a past medical history significant for abdominal hernia s/p repair, CHF s/p AICD ([facility]), AVR on Eliquis, reportedly had coronary angiogram showing non-obstructive CAD, HTN, hyperlipidemia, obesity, who presents to the emergency department with abdominal pain. The patient presents with a month of umbilical hernia pain, that worsened 2 days ago. The patient reports he is able to reduce the hernia. Also reports SOB and reduced exercise tolerance to 15 feet over the last week. Denies CP, dizziness, headache, weakness/numbness. Denies fever, chills, nausea , diarrhea, or constipation. Allergies: NKDA Surgical history: Hernia repair and aortic valve replacement. Social history: Former smoker. PCP: None reported. - History Source History Provided By: Patient, Medical Record Limitations to Obtaining History: No Limitations - Past Medical History Cardio/Vascular: Yes: HTN, [place] Renal/: Yes: Renal Inusuff Heme/Onc: No: Anemia Psych: Yes: Anxiety, Other - Past Surgical History Past Surgical History: Yes: AICD, Hernia Repair, Valve Replacement - Alcohol/Substance Use Hx Alcohol Use: No - Smoking History Smoking history: Former smoker Have you smoked in the past 12 months: No Home Medications - Allergies Allergies/Adverse Reactions: Allergies Allergy/AdvReac Type Severity Reaction Status Date / Time No Known Allergies Allergy Verified 08/21/18 14:54 - Home Medications Home Medications: Ambulatory Orders Amiodarone HCl 200 mg PO DAILY 08/21/18 Apixaban [Eliquis -] 5 mg PO BID 08/21/18 Atorvastatin Ca [Lipitor] 20 mg PO HS 08/21/18 Digoxin [Digitek] 125 mcg PO DAILY 08/21/18 Metoprolol Tartrate [Lopressor -] 25 mg PO DAILY 08/21/18 Simethicone [Gas Relief 80] 80 mg PO TID 08/21/18 Spironolactone 25 mg PO DAILY 08/21/18 Torsemide 60 mg PO BID 08/21/18 Family Disease History - Family Disease History Family History: Denies Review of Systems - Review of Systems Constitutional: reports: Weakness Eyes: reports: No Symptoms HENT: reports: No Symptoms Neck: reports: No Symptoms Cardiovascular: reports: Shortness of Breath Respiratory: reports: SOB Gastrointestinal: reports: Abdominal Pain Genitourinary: reports: No Symptoms Breasts: reports: No Symptoms Reported Musculoskeletal: reports: Extremity Pain, Joint Pain, Muscle Weakness Integumentary: reports: Erythema, Lesions Neurological: reports: Weakness Endocrine: reports: No Symptoms Hematology/Lymphatic: reports: No Symptoms (;) - Risk Factors Known Risk Factors: Yes: Age, Gender, Hypercholesterolemia, Hypertension, Physical Inactivity, Prior [place] /Emb Stroke (prior [place]), Smoking (former), Other ( systolic CHF;) Vital Signs: Vital Signs Temperature 98.2 F 08/22/18 14:41 Pulse Rate 70 08/22/18 14:41 Respiratory Rate 16 08/22/18 14:41 Blood Pressure 102/65 08/22/18 14:41 O2 Sat by Pulse Oximetry (%) 98 08/22/18 14:41 Constitutional: Yes: Anxious, Obese Eyes: Yes: WNL HENT: Yes: WNL Neck: Yes: WNL Respiratory: Yes: Regular Gastrointestinal: Yes: Soft, Abdomen, Obese, Hernia (umbilical) Renal/: No: Anuria Heart Sounds: Yes: S1, S2 Murmur: Yes: Systolic Murmur, Grade 2 Musculoskeletal: Yes: Back Pain, Joint Stiffness, Muscle Weakness Extremities: Yes: Cool Edema: Yes Edema: LLE: 3+, RLE: 3+ Peripheral Pulses WNL: No Peripheral Pulses: 1+ Left Doralis Pedis, 1+ Right Dorsalis Pedis Integumentary: Yes: Erythema, Pressure Ulcer, Skin Tear, Venous Stasis Changes Neurological: Yes: Alert, Oriented, Weakness Psychiatric: Yes: Agitated, Other - Other Data Labs, Other Data: CBC, BMP 08/22/18 05:24 08/22/18 05:24 INR, PTT INR 1.87 (0.83-1.09) H 08/21/18 16:55 Troponin, BNP 08/21/18 16:55 Troponin I 0.03 B-Natriuretic Peptide 5725.7 H Troponin, BNP 08/21/18 16:55 Troponin I 0.03 B-Natriuretic Peptide 5725.7 H Abnormal Lab Results 08/21/18 08/22/18 08/22/18 16:55 03:05 05:24 RDW 18.2 H Monocytes % 18.1 H BUN 33 H Creatinine 2.2 H Lactic Acid 2.4 H* Magnesium 2.5 H Total Bilirubin 2.7 H Direct Bilirubin Alkaline Phosphatase 161 H B-Natriuretic Peptide 5725.7 H Albumin 3.2 L 08/22/18 08/22/18 05:24 05:24 RDW Monocytes % BUN 33 H Creatinine 2.1 H Lactic Acid Magnesium 2.7 H Total Bilirubin 2.8 H Direct Bilirubin 1.9 H Alkaline Phosphatase 155 H B-Natriuretic Peptide Albumin 3.3 L Echo: Report Reviewed (20-25%) Ejection Fraction %: LVEF < 40 % Imaging - Results Chest X-ray: Image Reviewed (extensive vascular congestion; right pleural effusion) Problem List - Problems (1) Acute on chronic systolic CHF (congestive heart failure) Assessment/Plan: I discussed pt with on eof his cardiologists at [facility], Dr. Escalante. Pt has hx of perforated aortic valve years ago (while undergoing a coronary embolectomy during an [place]) that led to bioprosthetic aortic valve replacement. Hx LVEF 20%; reportedly did not require PCI when underwent coronary angiogram ? 2 years ago; on amiodarone, possibly for ventricular arrhythmia (has ICD), and digoxin. May have had a trial on ENtresto in the past (renal dysfunction presently). Continue metoprolol (change to ERE for 24 hour coverage and easier compliance), spironolactone, furosemide. Start Entresto in am. Decrease digoxin to 0.125 mg every other day (on amiodarone); keep level 0.5- 1.0. On apixaban for AF F/u ECHO for LVEF, valve status. F/u BUN/Cr, electrolytes, daily weight, Is and Os. Code(s): I50.23 - ACUTE ON CHRONIC SYSTOLIC (CONGESTIVE) HEART FAILURE (2) Cellulitis Assessment/Plan: on antibiotics dressing changes; wound care Code(s): L03.90 - CELLULITIS, UNSPECIFIED (3) Pneumonia Code(s): J18.9 - PNEUMONIA, UNSPECIFIED ORGANISM (4) H/O aortic valve replacement Assessment/Plan: f/u ECHO for LVEF, valve status. Code(s): Z95.2 - PRESENCE OF PROSTHETIC HEART VALVE (5) Hyperlipidemia Code(s): E78.5 - HYPERLIPIDEMIA, UNSPECIFIED (6) Atrial fibrillation Code(s): I48.91 - UNSPECIFIED ATRIAL FIBRILLATION (7) Ventricular arrhythmia Code(s): I49.9 - CARDIAC ARRHYTHMIA, UNSPECIFIED
[2018-08-22] MEDS ORDERED: METOPROLOL TARTRATE 25 MG TABLET (FP) PO ONE (22:00)
[2018-08-22] MEDS: ATORVASTATIN CA 20 MG TABLET (FP) PO SCH (22:15)
[2018-08-23] MEDS ORDERED: DEXTROSE 5%-WATER - 50 ML IVPB ONE ×3 (02:48→17:23)
[2018-08-23] MEDS ORDERED: PIPERACILLIN/TAZOBACTAM 2.25 GM VIAL IVPB ONE ×3 (02:48→17:23)
[2018-08-23] MEDS: PIPERACILLIN/TAZOB 2.25 GM 2.25 GM in DEXTROSE 5%-WATER - 50 ML IVPB SCH ×3 (02:58→17:36)
[2018-08-23] MEDS ORDERED: ACETAMINOPHEN 325 MG TABLET (FP) PO ONE ×2 (03:23→21:03)
[2018-08-23] MEDS ORDERED: TORSEMIDE 20 MG TABLET (FP) PO SCH (06:00)
[2018-08-23 08:33] LABS: BASO % 0.4 % (0-2.0); EOS % 0.2 % (0-4.5); HEMATOCRIT 37.9 % (35.4-49); HEMOGLOBIN 12.3 GM/dL (11.7-16.9); MCH 30.3 pg (25.7-33.7); MCHC 32.4 g/dl (32.0-35.9); MEAN CELL VOLUME 93.7 fl (80-96); MEAN PLT VOLUME 8.7 fl (7.5-11.1); MONO % 9.7 % (3.8-10.2); NEUT % 81.7 % (42.8-82.8); PLATELET COUNT 161 K/MM3 (134-434); RBC 4.04 M/mm3 (4.00-5.60); RDW 17.8 % (11.9-15.9); WHITE BLOOD COUNT 11.5 K/mm3 (4.0-10.0)
[2018-08-23 09:12] LABS: CREATININE 2.6 mg/dL (0.55-1.3); POTASSIUM 4.3 mmol/L (3.5-5.1)
[2018-08-23 09:13] LABS: CALCIUM 9.2 mg/dL (8.5-10.1)
--- NOTE | 2018-08-23 09:30 | PN ---
Physical Exam: SUBJECTIVE: Patient seen and examined lying in bed. no new complaints reports breathing is fine complains of pain and swelling in legs. unable to tell if its getting better or same or worse. Dressing present on left lef OBJECTIVE: Vital Signs Period Temp Pulse Resp BP Sys/Ann Pulse Ox Last 24 Hr 97.8 F-98.2 F 60-70 16-20 100-105/39-68 92-98 GEN: A&O, no distress HEENT: Moist mucus membranes HEART: RRR, no murmurs noted, sis2 normal LUNGS: Cb/l air entry present, no wheezing, no crackles ABDOMEN: Soft, nontender, ventral hernia, reducible EXTREMITIES: LLE dressing present. Right LE swollen with erythema, warm to touch Laboratory Results - last 24 hr 08/21/18 08/22/18 08/23/18 05:24 08:45 07:35 WBC 11.5 H RBC 4.04 Hgb 12.3 Hct 37.9 MCV 93.7 MCH 30.3 MCHC 32.4 RDW 17.8 H Plt Count 161 MPV 8.7 Absolute Neuts (auto) 9.4 H Neutrophils % 81.7 D Lymphocytes % 8.0 D Monocytes % 9.7 Eosinophils % 0.2 D Basophils % 0.4 Nucleated RBC % 0 Sodium Potassium Chloride Carbon Dioxide Anion Gap BUN Creatinine Est GFR (CKD-EPI)AfAm Est GFR (CKD-EPI)NonAf Random Glucose Lactic Acid 2.0 Calcium Blood Type A POSITIVE 08/23/18 07:35 WBC RBC Hgb Hct MCV MCH MCHC RDW Plt Count MPV Absolute Neuts (auto) Neutrophils % Lymphocytes % Monocytes % Eosinophils % Basophils % Nucleated RBC % Sodium 136 Potassium 4.3 Chloride 100 Carbon Dioxide 25 Anion Gap 11 BUN 37 H Creatinine 2.6 H Est GFR (CKD-EPI)AfAm 28.31 Est GFR (CKD-EPI)NonAf 24.42 Random Glucose 89 Lactic Acid Calcium 9.2 Blood Type Active Medications Generic Name Dose Route Start Last Admin Trade Name Freq PRN Reason Stop Dose Admin Amiodarone HCl 200 mg 08/22/18 10:00 08/22/18 10:34 Cordarone - PO 200 mg DAILY [facility] Administration Apixaban 5 mg 08/22/18 10:00 08/22/18 22:15 Eliquis - PO 5 mg BID [facility] Administration Atorvastatin Calcium 20 mg 08/22/18 22:00 08/22/18 22:15 Lipitor - PO 20 mg HS [facility] Administration Vancomycin HCl 1,000 mg in 250 mls @ 200 mls/hr 08/22/18 11:00 08/22/18 17:51 Vancomycin (Pre-Docked) IVPB 200 mls/hr Q24H [facility] Administration Protocol Piperacillin Sod/Tazobactam 50 mls @ 100 mls/hr 08/22/18 11:00 08/23/18 02:58 Sod 2.25 gm/ Dextrose IVPB 100 mls/hr Q8H-IV [facility] Administration Protocol Metoprolol Succinate 50 mg 08/23/18 10:00 Toprol Xl - PO DAILY [facility] Sacubitril/Valsartan 1 tab 08/23/18 10:00 Entresto 24 Mg-26 Mg Tablet PO BID [facility] Spironolactone 25 mg 08/22/18 10:00 08/22/18 10:34 Aldactone - PO 25 mg DAILY [facility] Administration Torsemide 60 mg 08/23/18 06:00 08/23/18 07:23 Demadex - PO Not Given BID@0600,1400 [facility] ASSESSMENT/PLAN:67 yo M, POOR historian, with a PMHx of HTN, A-fib, CAD (s/p pacemaker, AICD), an extensive cardiac history, abdominal hernia (with x3 surgery), presented to the ED from Physical therapy because of abdominal pain at the site of his abdominal hernia. b/l lower extremity cellulitis - ID on case - Vanc/Zosyn - blood and wound culture pending - b/l lower limb elevation - regular dressing on left leg acute on chronic systolic chf b/l lower extremity swelling on spironolactone nad tosemide daily weight low salt diet echo cardiology on case on entresto, metoprolol nonobsructive umblical hernia can be followed outpatient passing stool and flatus CKD cr trending up 2.1---> 2.6 monitor cr avoid nephrotoxic drugs on torsemide, spironolactone and entresto hold torsemide and entresto for rising creatnine. not sure if rising cr is because of chf or overdiurese. we will repeat cr tomorrow. Pt not in respiratory distress A-fib -on digoxin every other day , toprol 50, amiodarone 200 mg daily -Currently rate controlled -Cardiology on case -Digoxin 125 mcg every other day Aortic valve replacement/repair -Echo pending for lvef and valve function Elevated Alk Phos and T-bili -RUQ US reviewed -liver congestion noted on CT scan - FEN -none -monitor and replete -Na controlled diet DVT Prophylaxis -Eliquis 5 mg PO BID Visit type - Emergency Visit Emergency Visit: Yes ED Registration Date: 08/22/18 Care time: The patient presented to the Emergency Department on the above date and was hospitalized for further evaluation of their emergent condition. - New Patient This patient is new to me today: Yes Date on this admission: 08/24/18 - Critical Care Critical Care patient: No
[2018-08-23] MEDS ORDERED: PT OWN MED DRAWER 7, Y5N ONE (09:53)
[2018-08-23] MEDS ORDERED: SACUBITRIL/VALSARTAN 24 MG-26 MG TABLET PO SCH (10:00)
--- NOTE | 2018-08-23 10:02 | PN ---
Teaching Attending Note Name of Resident: Gagandeep Garcia ATTENDING PHYSICIAN STATEMENT I saw and evaluated the patient. I reviewed the resident's note and discussed the case with the resident. I agree with the resident's findings and plan as documented. SUBJECTIVE: declined interview and exam ASSESSMENT AND PLAN: 67 y/o man with h/o CHF, AICD, A fib On Eliquis, LE venous stasis, abd wall hernia s/p Sx , aortic valve rupture during coronary thrombectomy, s/p AV replacement ( bioprosthetic ) who presented with abd pain and was found to have cellulitis of LE. 1- Sepsis due to LE cellulitis: unable to assess as patient declined exam - wound cx pending , and no organisms on gram stain - follow blood cx - cont vanco and zosyn. - Cr clearance is 41 % today as renal function worsened. Will discuss vanco dosing with Id . trough tomorrow 9:30 am 2- ERIK on CKD: base line in 07/11 1.7. - monitor with diuresis to determine next step 3- H/o Systolic heart failure: - echo pending - diuresis for now , pending direction of Cr - records form [place] indicate an EF of 20 % in 2017 - cont BB. Cont entresto . monitor BP closely - Appreciate helpful card note 4- Elevated Alk phos and bili: possibly due to liver congestion, but US showed thickening in gall bladder wall with stones. Unable to determine if he has RUQ tenderness today, but non yesterday. - will re-evaluate the need for HIDA after diuresis - US pending 5- Abd wall hernia: no strangulation on CT scan . 6- DM : SSI for now 7- H/o A fib : - cont eliquis - cont dig q48 hr - cont amio ( likely ventricular arrhythmias ) 8- Dispo: HLOC
[2018-08-23] MEDS: SPIRONOLACTONE 25 MG TABLET (FP) PO SCH (10:23)
[2018-08-23] MEDS: AMIODARONE HCL 200 MG TABLET (FP) PO SCH (10:23)
[2018-08-23] MEDS: TORSEMIDE 20 MG TABLET (FP) PO SCH (10:30)
[2018-08-23] MEDS: APIXABAN 5 MG TABLET PO SCH ×2 (10:32→21:27)
[2018-08-23] MEDS: VANCOMYCIN 1 GRAM (PRE-DOCKED) 1,000 MG/250 ML BAG IVPB SCH (13:55)
--- NOTE | 2018-08-23 14:10 | PN ---
Progress Note (short form) - Note Progress Note: unable to examine- he is sleeping and wants to be left alone will try tomorrow
[2018-08-23] MEDS ORDERED: SODIUM CHLORIDE 500 ML IV STA (16:04)
--- NOTE | 2018-08-23 17:39 | PN ---
Progress Note, Physician History of Present Illness: LLE discomfort, denies chest pain, dyspnea, near or true syncope. - Current Medication List Current Medications: Active Medications Amiodarone HCl (Cordarone -) 200 mg PO DAILY [facility] Last Admin: 08/23/18 10:23 Dose: Not Given Apixaban (Eliquis -) 5 mg PO BID [facility] Last Admin: 08/23/18 10:32 Dose: 5 mg Atorvastatin Calcium (Lipitor -) 20 mg PO HS [facility] Last Admin: 08/22/18 22:15 Dose: 20 mg Digoxin (Lanoxin -) 0.125 mg PO Q48H [facility] Vancomycin HCl (Vancomycin (Pre-Docked)) 1,000 mg in 250 mls @ 200 mls/hr IVPB Q24H [facility]; Protocol Last Admin: 08/23/18 13:55 Dose: 200 mls/hr Piperacillin Sod/Tazobactam (Sod 2.25 gm/ Dextrose) 50 mls @ 100 mls/hr IVPB Q8H-IV [facility]; Protocol Last Admin: 08/23/18 17:36 Dose: 100 mls/hr Metoprolol Succinate (Toprol Xl -) 50 mg PO DAILY [facility] Last Admin: 08/23/18 10:23 Dose: Not Given Spironolactone (Aldactone -) 25 mg PO DAILY [facility] Last Admin: 08/23/18 10:23 Dose: Not Given - Objective Vital Signs: Vital Signs Temperature 98.1 F 08/23/18 13:40 Pulse Rate 60 08/23/18 13:40 Respiratory Rate 16 08/23/18 13:40 Blood Pressure 82/53 L 08/23/18 13:40 O2 Sat by Pulse Oximetry (%) 92 L 08/23/18 10:00 Constitutional: Yes: No Distress, Calm Neck: Yes: Supple Cardiovascular: Yes: Regular Rate and Rhythm Respiratory: Yes: Regular, Diminished Gastrointestinal: Yes: Normal Bowel Sounds, Soft Edema: Yes Wound/Incision: Yes: Dressing Dry and Intact Labs: CBC, BMP 08/23/18 07:35 08/23/18 07:35 INR, PTT INR 1.87 (0.83-1.09) H 08/21/18 16:55 Assessment/Plan - Problems (1) Acute on chronic systolic CHF (congestive heart failure) Assessment/Plan: Cardiologists at [facility], Dr. Escalante. Pt has hx of perforated aortic valve years ago (while undergoing a coronary embolectomy during an [place]) that led to bioprosthetic aortic valve replacement. Hx LVEF 20%; reportedly did not require PCI when underwent coronary angiogram ? 2 years ago; on amiodarone, possibly for ventricular arrhythmia (has ICD), and digoxin. May have had a trial on ENtresto in the past (renal dysfunction presently). Continue metoprolol XL 50 qd. spironolactone, furosemide, Entresto held pending renal fxn recovery Decreased digoxin to 0.125 mg every other day (on amiodarone); keep level 0.5- 1.0. On apixaban for AF F/u ECHO for LVEF, valve status. F/u BUN/Cr, electrolytes, daily weight, Is and Os. Code(s): I50.23 - ACUTE ON CHRONIC SYSTOLIC (CONGESTIVE) HEART FAILURE (2) Cellulitis Assessment/Plan: on antibiotics per ID dressing changes; wound care Code(s): L03.90 - CELLULITIS, UNSPECIFIED (3) Pneumonia Code(s): J18.9 - PNEUMONIA, UNSPECIFIED ORGANISM (4) H/O aortic valve replacement Assessment/Plan: f/u ECHO for LVEF, valve status. Code(s): Z95.2 - PRESENCE OF PROSTHETIC HEART VALVE (5) Hyperlipidemia Code(s): E78.5 - HYPERLIPIDEMIA, UNSPECIFIED on Lipitor 20 qhs (6) Atrial fibrillation Code(s): I48.91 - UNSPECIFIED ATRIAL FIBRILLATION on eliquis 5 bid (7) Ventricular arrhythmia Code(s): I49.9 - CARDIAC ARRHYTHMIA, UNSPECIFIED 8. Acute on CKD: Entresto, Lasix and Aldactone held pending renal fxn stabilization
[2018-08-23] MEDS: ATORVASTATIN CA 20 MG TABLET (FP) PO SCH (21:26)
[2018-08-24] MEDS ORDERED: DEXTROSE 5%-WATER - 50 ML IVPB ONE ×3 (02:21→16:46)
[2018-08-24] MEDS ORDERED: PIPERACILLIN/TAZOBACTAM 2.25 GM VIAL IVPB ONE ×3 (02:21→16:46)
[2018-08-24] MEDS: PIPERACILLIN/TAZOB 2.25 GM 2.25 GM in DEXTROSE 5%-WATER - 50 ML IVPB SCH ×3 (02:28→17:05)
[2018-08-24 07:21] LABS: BASO % 0.9 % (0-2.0); EOS % 1.4 % (0-4.5); HEMATOCRIT 37.8 % (35.4-49); HEMOGLOBIN 12.5 GM/dL (11.7-16.9); LYMPH % 13.9 % (8-40); MCH 30.5 pg (25.7-33.7); MCHC 33.2 g/dl (32.0-35.9); MEAN CELL VOLUME 91.9 fl (80-96); MEAN PLT VOLUME 8.7 fl (7.5-11.1); MONO % 13.6 % (3.8-10.2); NEUT % 70.2 % (42.8-82.8); PLATELET COUNT 186 K/MM3 (134-434); RBC 4.11 M/mm3 (4.00-5.60); RDW 17.8 % (11.9-15.9); WHITE BLOOD COUNT 8.5 K/mm3 (4.0-10.0)
[2018-08-24 07:44] LABS: CREATININE 2.9 mg/dL (0.55-1.3)
[2018-08-24 07:45] LABS: BILIRUBIN,TOTAL 2.8 mg/dL (0.2-1); CALCIUM 9.3 mg/dL (8.5-10.1); MAGNESIUM 2.8 mg/dL (1.8-2.4); PHOSPHOROUS 4.4 mg/dL (2.5-4.9); TOT PROT 6.5 g/dl (6.4-8.2)
[2018-08-24] MEDS: AMIODARONE HCL 200 MG TABLET (FP) PO SCH (09:36)
[2018-08-24] MEDS: SPIRONOLACTONE 25 MG TABLET (FP) PO SCH (09:36)
[2018-08-24] MEDS: APIXABAN 5 MG TABLET PO SCH ×2 (09:36→21:21)
[2018-08-24] MEDS: DIGOXIN 0.125 MG TABLET (FP) PO SCH (09:36)
[2018-08-24] MEDS ORDERED: TORSEMIDE 20 MG TABLET (FP) PO SCH (10:15)
[2018-08-24] MEDS: VANCOMYCIN 1 GRAM (PRE-DOCKED) 1,000 MG/250 ML BAG IVPB SCH (11:05)
--- NOTE | 2018-08-24 12:08 | PN ---
Progress Note, Physician History of Present Illness: Blilateral LE discomfort improved, denies chest pain, dyspnea, near or true syncope. eGFR declining. - Current Medication List Current Medications: Active Medications Amiodarone HCl (Cordarone -) 200 mg PO DAILY [facility] Last Admin: 08/24/18 09:36 Dose: 200 mg Apixaban (Eliquis -) 5 mg PO BID [facility] Last Admin: 08/24/18 09:36 Dose: 5 mg Atorvastatin Calcium (Lipitor -) 20 mg PO HS [facility] Last Admin: 08/23/18 21:26 Dose: 20 mg Digoxin (Lanoxin -) 0.125 mg PO Q48H [facility] Last Admin: 08/24/18 09:36 Dose: 0.125 mg Vancomycin HCl (Vancomycin (Pre-Docked)) 1,000 mg in 250 mls @ 200 mls/hr IVPB Q24H [facility]; Protocol Last Admin: 08/24/18 11:05 Dose: 200 mls/hr Piperacillin Sod/Tazobactam (Sod 2.25 gm/ Dextrose) 50 mls @ 100 mls/hr IVPB Q8H-IV [facility]; Protocol Last Admin: 08/24/18 09:37 Dose: 100 mls/hr Metoprolol Succinate (Toprol Xl -) 50 mg PO DAILY [facility] Last Admin: 08/24/18 11:05 Dose: 50 mg Spironolactone (Aldactone -) 25 mg PO DAILY [facility] Last Admin: 08/24/18 09:36 Dose: 25 mg Torsemide (Demadex -) 60 mg PO DAILY [facility] Last Admin: 08/24/18 11:04 Dose: 60 mg - Objective Vital Signs: Vital Signs Temperature 97.8 F 08/24/18 10:50 Pulse Rate 60 08/24/18 10:50 Respiratory Rate 20 08/24/18 10:50 Blood Pressure 109/65 08/24/18 10:50 O2 Sat by Pulse Oximetry (%) 95 08/24/18 09:00 Constitutional: Yes: No Distress, Calm Neck: Yes: Supple Cardiovascular: Yes: Regular Rate and Rhythm Respiratory: Yes: Regular, Diminished Gastrointestinal: Yes: Normal Bowel Sounds, Soft Extremities: Yes: Erythema Edema: Yes Edema: LLE: 1+, RLE: 1+ Wound/Incision: Yes: Dressing Dry and Intact Labs: CBC, BMP 08/24/18 06:10 08/24/18 06:10 INR, PTT INR 1.87 (0.83-1.09) H 08/21/18 16:55 - ....Imaging EKG: Report Reviewed (Afib v-paced) Assessment/Plan - Problems (1) Acute on chronic systolic CHF (congestive heart failure) Assessment/Plan: Cardiologists at [facility], Dr. Escalante. Pt has hx of perforated aortic valve years ago (while undergoing a coronary embolectomy during an [place]) that led to bioprosthetic aortic valve replacement. Hx LVEF 20%; reportedly did not require PCI when underwent coronary angiogram ? 2 years ago; on amiodarone, possibly for ventricular arrhythmia (has ICD), and digoxin. May have had a trial on ENtresto in the past (renal dysfunction presently). Continue metoprolol XL 50 qd. resumed spironolactone, torsemide with caution, Entresto held pending renal fxn recovery Decreased digoxin to 0.125 mg every other day (on amiodarone); keep level 0.5- 1.0. On apixaban for AF F/u ECHO for LVEF, valve status. F/u BUN/Cr, electrolytes, daily weight, Is and Os. Code(s): I50.23 - ACUTE ON CHRONIC SYSTOLIC (CONGESTIVE) HEART FAILURE (2) Cellulitis Assessment/Plan: on antibiotics per ID dressing changes; wound care Code(s): L03.90 - CELLULITIS, UNSPECIFIED (3) Pneumonia Code(s): J18.9 - PNEUMONIA, UNSPECIFIED ORGANISM (4) H/O aortic valve replacement Assessment/Plan: f/u ECHO for LVEF, valve status. Code(s): Z95.2 - PRESENCE OF PROSTHETIC HEART VALVE (5) Hyperlipidemia Code(s): E78.5 - HYPERLIPIDEMIA, UNSPECIFIED on Lipitor 20 qhs (6) Atrial fibrillation Code(s): I48.91 - UNSPECIFIED ATRIAL FIBRILLATION on eliquis 5 bid (7) Ventricular arrhythmia Code(s): I49.9 - CARDIAC ARRHYTHMIA, UNSPECIFIED 8. Acute on CKD: Resumed Demadex and Aldactone with caution, Entresto held pending renal fxn stabilization
--- NOTE | 2018-08-24 13:22 | PN ---
Progress Note (short form) - Note Progress Note: Subjective: feels better , no fever or chills. nO CARRILLO . ho pain in abd . Objective: Vital Signs: Last Vital Signs Temp Pulse Resp BP Pulse Ox 97.8 F 60 20 109/65 95 08/24/18 10:50 08/24/18 10:50 08/24/18 10:50 08/24/18 10:50 08/24/18 09:00 Laboratory Results - last 24 hr 08/23/18 08/23/18 08/24/18 12:50 15:25 06:10 WBC RBC Hgb Hct MCV MCH MCHC RDW Plt Count MPV Absolute Neuts (auto) Neutrophils % Lymphocytes % Monocytes % Eosinophils % Basophils % Nucleated RBC % Sodium Potassium Chloride Carbon Dioxide Anion Gap BUN Creatinine Est GFR (CKD-EPI)AfAm Est GFR (CKD-EPI)NonAf Random Glucose Lactic Acid 2.0 Calcium Phosphorus Magnesium Total Bilirubin AST ALT Alkaline Phosphatase Total Protein Albumin Random Vancomycin 9.0 L 17.4 L 08/24/18 08/24/18 06:10 06:10 WBC 8.5 RBC 4.11 Hgb 12.5 Hct 37.8 MCV 91.9 MCH 30.5 MCHC 33.2 RDW 17.8 H Plt Count 186 MPV 8.7 Absolute Neuts (auto) 6.0 Neutrophils % 70.2 Lymphocytes % 13.9 D Monocytes % 13.6 H Eosinophils % 1.4 D Basophils % 0.9 Nucleated RBC % 0 Sodium 133 L Potassium 4.0 Chloride 100 Carbon Dioxide 24 Anion Gap 9 BUN 43 H Creatinine 2.9 H Est GFR (CKD-EPI)AfAm 24.81 Est GFR (CKD-EPI)NonAf 21.40 Random Glucose 85 Lactic Acid Calcium 9.3 Phosphorus 4.4 Magnesium 2.8 H Total Bilirubin 2.8 H AST 18 ALT 16 Alkaline Phosphatase 133 H Total Protein 6.5 Albumin 3.0 L Random Vancomycin Physical Exam: NAD CV: RRR, 2/6 SM at base . Lungs: CTAB Abd: soft, obese, NL BS, abd wall hernia at mid line, tender in all quadrants Ext: LLE: erythema , wounds, and edema are slightly better. still has significant erythema and edema in medial thigh RLE: with edema , discoloration on leg. medial thigh edema and erythema . foot erythema and edema A/P 67 y/o man with h/o CHF, AICD, A fib On Eliquis, LE venous stasis, abd wall hernia s/p Sx , aortic valve rupture during coronary thrombectomy, s/p AV replacement ( bioprosthetic ) who presented with abd pain and was found to have cellulitis of LE. 1- Sepsis due to LE cellulitis: - wound cx reviewed . - will d/w ID if vanco is still needed - cont zosyn 2- ERIK on CKD: base line in 07/11 1.7. - d/w Dr. Arriaga. hold demadex 3- H/o Systolic heart failure: - echo pending - hold demadex in setting of ERIK - records form [place] indicate an EF of 20 % in 2017 - cont BB. hold entresto . monitor BP closely - tele reviewed. paced ryhthm 4- Elevated Alk phos and bili: possibly due to liver congestion, but US showed thickening in gall bladder wall with stones. Abd is tender in all quadrants. doubt cholecystitis - will evaluate the need for HIDA 5- Abd wall hernia: no strangulation on CT scan . 6- DM : SSI for now 7- H/o A fib : - cont eliquis - cont dig q48 hr - cont amio ( likely ventricular arrhythmias ) 8- Dispo: HLOC Visit type - Emergency Visit Emergency Visit: Yes ED Registration Date: 08/22/18 Care time: The patient presented to the Emergency Department on the above date and was hospitalized for further evaluation of their emergent condition. - New Patient This patient is new to me today: No - Critical Care Critical Care patient: No
--- NOTE | 2018-08-24 16:29 | PN ---
Progress Note (short form) - Note Progress Note: no fevers complains of pain all over Vital Signs Period Temp Pulse Resp BP Sys/Ann Pulse Ox Last 24 Hr 97.6 F-98.4 F 60-66 18-20 101-111/56-68 95-95 cor-rrr lungs decreased bs at bases abd firm +umbilical hernia ext +pitting edema he will not let me remove the dressing LLE CBC, BMP 08/24/18 06:10 08/24/18 06:10 Microbiology 08/22/18 10:56 Cellulitis Gram Stain - Final 08/22/18 10:56 Cellulitis Wound Culture - Final Serratia Marcescens Klebsiella Oxytoca Staphylococcus Aureus 08/22/18 19:00 Blood - Peripheral Venous Blood Culture - Preliminary NO GROWTH OBTAINED AFTER 24 HOURS, INCUBATION TO CONTINUE FOR 4 DAYS. 08/22/18 19:15 Blood - Peripheral Venous Blood Culture - Preliminary NO GROWTH OBTAINED AFTER 24 HOURS, INCUBATION TO CONTINUE FOR 4 DAYS. cxray worsening congestion a/p cellulitis improving can d/c vancomycin continue zosyn for now grace/ckd CHF
[2018-08-24] MEDS ORDERED: ACETAMINOPHEN 325 MG TABLET (FP) ONE (16:51)
[2018-08-24] MEDS: ACETAMINOPHEN 325 MG TABLET (FP) PO PRN (17:52)
[2018-08-24] MEDS: ATORVASTATIN CA 20 MG TABLET (FP) PO SCH (21:21)
[2018-08-25] MEDS ORDERED: DEXTROSE 5%-WATER - 50 ML IVPB ONE ×2 (02:42→09:38)
[2018-08-25] MEDS ORDERED: PIPERACILLIN/TAZOBACTAM 2.25 GM VIAL IVPB ONE ×2 (02:42→09:38)
[2018-08-25] MEDS: PIPERACILLIN/TAZOB 2.25 GM 2.25 GM in DEXTROSE 5%-WATER - 50 ML IVPB SCH ×2 (02:47→10:17)
[2018-08-25 06:55] LABS: BASO % 0.7 % (0-2.0); HEMATOCRIT 40.1 % (35.4-49); HEMOGLOBIN 13.1 GM/dL (11.7-16.9); LYMPH % 14.5 % (8-40); MCH 30.3 pg (25.7-33.7); MCHC 32.7 g/dl (32.0-35.9); MEAN CELL VOLUME 92.8 fl (80-96); MEAN PLT VOLUME 8.4 fl (7.5-11.1); NEUT % 69.8 % (42.8-82.8); PLATELET COUNT 190 K/MM3 (134-434); RBC 4.32 M/mm3 (4.00-5.60); RDW 17.9 % (11.9-15.9)
[2018-08-25 07:14] LABS: CALCIUM 9.3 mg/dL (8.5-10.1); CREATININE 2.7 mg/dL (0.55-1.3); POTASSIUM 3.8 mmol/L (3.5-5.1)
--- NOTE | 2018-08-25 08:41 | CONSULT ---
- Consultation REQUESTING PROVIDER: CONSULT REQUEST: We have been asked to surgically evaluate this patient for Leg wounds, swelling. PCP:Maryse Casper HISTORY OF PRESENT ILLNESS: 67yo M consulted to Vascular for evaluation of LLE wound and edema. Pt states that he has a long history LE wounds and that he goes weekly to the wound care clinic at [facility], [place]. Pt states that he has been doing compression dressings at the clinic. Pt denies h/o arterial disease, no surgery or intervention in the past. Pt is a former smoker quit about 8 years ago. PMHx: Aortic valve replacement, CHF, CAD PSHx: Aortic valve replacement, AICD/pacemaker Home Medications Medication Instructions Recorded Amiodarone HCl 200 mg PO DAILY 08/21/18 Apixaban [Eliquis -] 5 mg PO BID 08/21/18 Atorvastatin Ca [Lipitor] 20 mg PO HS 08/21/18 Digoxin [Digitek] 125 mcg PO DAILY 08/21/18 Metoprolol Tartrate [Lopressor -] 25 mg PO DAILY 08/21/18 Simethicone [Gas Relief 80] 80 mg PO TID 08/21/18 Spironolactone 25 mg PO DAILY 08/21/18 Torsemide 60 mg PO BID 08/21/18 Allergies Allergy/AdvReac Type Severity Reaction Status Date / Time No Known Allergies Allergy Verified 08/21/18 14:54 REVIEW OF SYSTEMS: CONSTITUTIONAL: Absent: fever, chills, diaphoresis, generalized weakness, malaise, loss of appetite, weight change CARDIOVASCULAR: Absent: chest pain, syncope, palpitations, irregular heart rate, lightheadedness RESPIRATORY: Absent: cough, shortness of breath, dyspnea with exertion, wheezing, stridor, hemoptysis GASTROINTESTINAL: Absent: abdominal pain, abdominal distension, nausea, vomiting, diarrhea, constipation, melena, hematochezia GENITOURINARY: Absent: dysuria, frequency, urgency, hesitancy, hematuria, flank pain, genital pain MUSCULOSKELETAL: Absent: myalgia, arthralgia, joint swelling, back pain, neck pain HEMATOLOGIC/IMMUNOLOGIC: Absent: easy bleeding, easy bruising, lymphadenopathy PHYSICAL EXAM: GENERAL: Awake, alert, and fully oriented, in no acute distress. HEAD: Normal with no signs of trauma. EYES: PERRL, sclera anicteric, conjunctiva clear. NECK: Normal ROM, supple without lymphadenopathy, JVD, or masses. HEART: Regular rate and rhythm ABDOMEN: Soft, nontender, not distended, normoactive bowel sounds, no guarding, no rebound, no masses. No organomegaly. MUSCULOSKELETAL: Normal ROM at all joints. No bony deformities or tenderness. No CVA tenderness. LOWER EXTREMITIES: LLE +2 PT no erythema, +1 edema. 5cm x 6cm ulcer anterior burdick, 1cm ulcer anterior burdick. RLE +1 edema NEUROLOGICAL: Normal speech, gait not observed. PSYCH: Cooperative. Good eye contact. Appropriate mood and affect. SKIN: Warm, dry, normal turgor, no rashes or lesions noted. Vital Signs Temperature 97.5 F L 08/25/18 06:00 Pulse Rate 60 08/25/18 06:00 Respiratory Rate 18 08/25/18 06:00 Blood Pressure 98/58 L 08/25/18 06:00 O2 Sat by Pulse Oximetry (%) 97 08/24/18 21:00 Lab Results WBC 8.5 K/mm3 (4.0-10.0) 08/24/18 06:10 RBC 4.11 M/mm3 (4.00-5.60) 08/24/18 06:10 Hgb 12.5 GM/dL (11.7-16.9) 08/24/18 06:10 Hct 37.8 % (35.4-49) 08/24/18 06:10 MCV 91.9 fl (80-96) 08/24/18 06:10 MCHC 33.2 g/dl (32.0-35.9) 08/24/18 06:10 RDW 17.8 % (11.9-15.9) H 08/24/18 06:10 Plt Count 186 K/MM3 (134-434) 08/24/18 06:10 Sodium 137 mmol/L (136-145) 08/25/18 06:10 Potassium 3.8 mmol/L (3.5-5.1) 08/25/18 06:10 Chloride 100 mmol/L (98-107) 08/25/18 06:10 Carbon Dioxide 27 mmol/L (21-32) 08/25/18 06:10 Anion Gap 10 MMOL/L (8-16) 08/25/18 06:10 BUN 43 mg/dL (7-18) H 08/25/18 06:10 Creatinine 2.7 mg/dL (0.55-1.3) H 08/25/18 06:10 Random Glucose 77 mg/dL (74-106) 08/25/18 06:10 Calcium 9.3 mg/dL (8.5-10.1) 08/25/18 06:10 Blood Type A POSITIVE 08/21/18 16:55 Antibody Screen Negative 08/21/18 16:55 INR 1.87 (0.83-1.09) H 08/21/18 16:55 Problem List - Problems (1) Leg ulcer, left Assessment/Plan: Plan -recommend xyeraform dressing to LLE change daily. Compression stocking to RLE. -pt should follow up with either his wound care clinic at [facility] or may follow up with wound care clinic here at [place] if wants to Case discussed with Dr. Dietz who agrees with plan Code(s): L97.929 - NON-PRS CHRONIC ULC UNSP PRT OF L LOW LEG W UNSP SEVERITY
[2018-08-25] MEDS: APIXABAN 5 MG TABLET PO SCH ×2 (10:17→22:41)
[2018-08-25] MEDS: AMIODARONE HCL 200 MG TABLET (FP) PO SCH (10:17)
[2018-08-25] MEDS: SPIRONOLACTONE 25 MG TABLET (FP) PO SCH (10:17)
--- NOTE | 2018-08-25 12:26 | PN ---
Progress Note, Physician History of Present Illness: The patient is a 67-year-old white male with a past medical history significant for abdominal hernia s/p repair, CHF s/p AICD ([facility]), AVR on Eliquis, reportedly had coronary angiogram showing non-obstructive CAD, HTN, hyperlipidemia, obesity, who presents to the emergency department with abdominal pain. The patient presents with a month of umbilical hernia pain, that worsened 2 days ago. The patient reports he is able to reduce the hernia. Also reports SOB and reduced exercise tolerance to 15 feet over the last week. Denies CP, dizziness, headache, weakness/numbness. Denies fever, chills, nausea , diarrhea, or constipation. Allergies: NKDA Surgical history: Hernia repair and aortic valve replacement. Social history: Former smoker. PCP: None reported. - Current Medication List Current Medications: Active Medications Acetaminophen (Tylenol -) 650 mg PO Q4H PRN PRN Reason: PAIN SCALE 1-5 Last Admin: 08/24/18 17:52 Dose: 650 mg Amiodarone HCl (Cordarone -) 200 mg PO DAILY [facility] Last Admin: 08/25/18 10:17 Dose: 200 mg Apixaban (Eliquis -) 5 mg PO BID [facility] Last Admin: 08/25/18 10:17 Dose: 5 mg Atorvastatin Calcium (Lipitor -) 20 mg PO HS [facility] Last Admin: 08/24/18 21:21 Dose: 20 mg Digoxin (Lanoxin -) 0.125 mg PO Q48H [facility] Last Admin: 08/24/18 09:36 Dose: 0.125 mg Piperacillin Sod/Tazobactam (Sod 2.25 gm/ Dextrose) 50 mls @ 100 mls/hr IVPB Q8H-IV [facility]; Protocol Last Admin: 08/25/18 10:17 Dose: 100 mls/hr Metoprolol Succinate (Toprol Xl -) 50 mg PO DAILY [facility] Last Admin: 08/25/18 10:17 Dose: 50 mg Spironolactone (Aldactone -) 25 mg PO DAILY [facility] Last Admin: 08/25/18 10:17 Dose: 25 mg - Objective Vital Signs: Vital Signs Temperature 98.1 F 08/25/18 08:42 Pulse Rate 62 08/25/18 08:42 Respiratory Rate 18 08/25/18 08:42 Blood Pressure 114/73 08/25/18 08:42 O2 Sat by Pulse Oximetry (%) 97 08/25/18 08:42 Eyes: Yes: WNL, Conjunctiva Clear, EOM Intact HENT: Yes: WNL, Atraumatic, Normocephalic Neck: Yes: WNL, Supple, Trachea Midline Cardiovascular: Yes: WNL, Regular Rate and Rhythm Respiratory: Yes: WNL, Regular, CTA Bilaterally Gastrointestinal: Yes: WNL, Normal Bowel Sounds Genitourinary: Yes: WNL Musculoskeletal: Yes: WNL Extremities: Yes: WNL Edema: No Integumentary: Yes: WNL Neurological: Yes: WNL, Alert, Oriented ...Motor Strength: WNL Psychiatric: Yes: WNL Labs: CBC, BMP 08/25/18 06:10 08/25/18 06:10 INR, PTT INR 1.87 (0.83-1.09) H 08/21/18 16:55 Assessment/Plan Assessment/Plan - Problems (1) Acute on chronic systolic CHF (congestive heart failure) Assessment/Plan: Cardiologists at [facility], Dr. Escalante. Pt has hx of perforated aortic valve years ago (while undergoing a coronary embolectomy during an CT) that led to bioprosthetic aortic valve replacement. Hx LVEF 20%; reportedly did not require PCI when underwent coronary angiogram ? 2 years ago; on amiodarone, possibly for ventricular arrhythmia (has ICD), and digoxin. May have had a trial on ENtresto in the past (renal dysfunction presently). Continue metoprolol XL 50 qd. resumed spironolactone, torsemide with caution, Entresto held pending renal fxn recovery Decreased digoxin to 0.125 mg every other day (on amiodarone); keep level 0.5- 1.0. On apixaban for AF F/u ECHO for LVEF, valve status. F/u BUN/Cr, electrolytes, daily weight, Is and Os. Code(s): I50.23 - ACUTE ON CHRONIC SYSTOLIC (CONGESTIVE) HEART FAILURE (2) Cellulitis Assessment/Plan: on antibiotics per ID dressing changes; wound care Code(s): L03.90 - CELLULITIS, UNSPECIFIED (3) Pneumonia Code(s): J18.9 - PNEUMONIA, UNSPECIFIED ORGANISM (4) H/O aortic valve replacement Assessment/Plan: f/u ECHO for LVEF, valve status. Code(s): Z95.2 - PRESENCE OF PROSTHETIC HEART VALVE (5) Hyperlipidemia Code(s): E78.5 - HYPERLIPIDEMIA, UNSPECIFIED on Lipitor 20 qhs (6) Atrial fibrillation Code(s): I48.91 - UNSPECIFIED ATRIAL FIBRILLATION on eliquis 5 bid (7) Ventricular arrhythmia Code(s): I49.9 - CARDIAC ARRHYTHMIA, UNSPECIFIED 8. Acute on CKD: Resumed Demadex and Aldactone with caution, Entresto held pending renal fxn stabilization
--- NOTE | 2018-08-25 13:33 | PN ---
Teaching Attending Note Name of Resident: Antwan Brown ATTENDING PHYSICIAN STATEMENT I saw and evaluated the patient. I reviewed the resident's note and discussed the case with the resident. I agree with the resident's findings and plan as documented. SUBJECTIVE: No fever or chills. no CARRILLO . pain i nlegs . no pain in abd OBJECTIVE: NAD CV: RRR, 2/6 SM at base . Lungs: CTAB Abd: soft, obese, NL BS, abd wall hernia at mid line, tender in all quadrants Ext:edema and erythema on medial thighs. R leg with improved erythema and edema. L leg wrapped and he refused exam A/P 67 y/o man with h/o CHF, AICD, A fib On Eliquis, LE venous stasis, abd wall hernia s/p Sx , aortic valve rupture during coronary thrombectomy, s/p AV replacement ( bioprosthetic ) who presented with abd pain and was found to have cellulitis of LE. 1- Sepsis due to LE cellulitis: - cont zosyn 2- ERIK on CKD: base line in 07/11 1.7. - improved . cont to hold demadex 3- H/o Systolic heart failure: - echo pending - hold demadex in setting of ERIK - cont BB. hold entresto. - tele reviewed. paced ryhthm, no events 4- Elevated Alk phos and bili: possibly due to liver congestion, but US showed thickening in gall bladder wall with stones. - HIDA 5- Abd wall hernia: no strangulation on CT scan . 6- DM : SSI for now 7- H/o A fib : - cont eliquis - cont dig q48 hr - cont amio 8- Dispo: HLOC
--- NOTE | 2018-08-25 13:48 | PN ---
Physical Exam: SUBJECTIVE: Patient seen and examined at bedside. Abdominal pain improved, LLE still painful, newly dressed by vascular surgery at time of evaluation. OBJECTIVE: Vital Signs Period Temp Pulse Resp BP Sys/Ann Pulse Ox Last 24 Hr 97.5 F-98.1 F 59-70 18-20 98-114/58-74 97-97 GENERAL: A&Ox3, NAD HEENT: NC/AT, PERRLA, EOMI, MMM NECK: Trachea midline, full range of motion, supple. LUNGS: CTA b/l HEART: RRR no m/r/g ABDOMEN: +bs, soft, reducible tender umbilical hernia, mild diffuse tenderness most prominent in LUQ EXTREMITIES: 2+ radial pulses, LLE freshly dressed by vasc Sx and Pt refused examination, RLE non-tender w/ lymphedema and tree-barking NEUROLOGICAL: cane flume watcher, motor, sensory systems w/o focal deficit PSYCH: Normal mood, normal affect. SKIN: Warm, dry, normal turgor Laboratory Results - last 24 hr 08/25/18 08/25/18 06:10 06:10 WBC 7.0 RBC 4.32 Hgb 13.1 Hct 40.1 MCV 92.8 MCH 30.3 MCHC 32.7 RDW 17.9 H Plt Count 190 MPV 8.4 Absolute Neuts (auto) 4.9 Neutrophils % 69.8 Lymphocytes % 14.5 Monocytes % 12.0 H Eosinophils % 3.0 D Basophils % 0.7 Nucleated RBC % 0 Sodium 137 Potassium 3.8 Chloride 100 Carbon Dioxide 27 Anion Gap 10 BUN 43 H Creatinine 2.7 H Est GFR (CKD-EPI)AfAm 27.04 Est GFR (CKD-EPI)NonAf 23.33 Random Glucose 77 Calcium 9.3 Active Medications Generic Name Dose Route Start Last Admin Trade Name Freq PRN Reason Stop Dose Admin Acetaminophen 650 mg 08/24/18 17:27 08/24/18 17:52 Tylenol - PO 650 mg Q4H PRN Administration PAIN SCALE 1-5 Amiodarone HCl 200 mg 08/22/18 10:00 08/25/18 10:17 Cordarone - PO 200 mg DAILY [facility] Administration Apixaban 5 mg 08/22/18 10:00 08/25/18 10:17 Eliquis - PO 5 mg BID [facility] Administration Atorvastatin Calcium 20 mg 08/22/18 22:00 08/24/18 21:21 Lipitor - PO 20 mg HS [facility] Administration Digoxin 0.125 mg 08/24/18 10:00 08/24/18 09:36 Lanoxin - PO 0.125 mg Q48H [facility] Administration Piperacillin Sod/Tazobactam 50 mls @ 100 mls/hr 08/22/18 11:00 08/25/18 10:17 Sod 2.25 gm/ Dextrose IVPB 100 mls/hr Q8H-IV [facility] Administration Protocol Metoprolol Succinate 50 mg 08/23/18 10:00 08/25/18 10:17 Toprol Xl - PO 50 mg DAILY [facility] Administration Spironolactone 25 mg 08/22/18 10:00 08/25/18 10:17 Aldactone - PO 25 mg DAILY [facility] Administration ASSESSMENT/PLAN: 67 y/o M w/ PMHx sCHF, CAD s/p PPM/AICD, Afib on Eliquis, LE venous stasis, chronic reducible umbilical hernia s/p multiple Sx, aortic valve rupture during coronary thrombectomy s/p AV bioprosthetic replacement, p/w "knife"-like abd pain at hernia site, found to be in sepsis 2/2 LLE cellulitis #sepsis 2/2 LLE cellulitis -ID following -wound culture growing multiple organisms -BCx negative -cont Zosyn (day 3) -no further Vancomycin -duplex negative #ERIK on CKD -hold torsemide -trend Cr, 2.7 today improved from 2.9, had been 1.7 2 months prior #systolic HF, CAD, Afib -cardiology following -prior echo in 2017 showing 20% EF -echo ordered -consider diuresis with stabilization of kidney function -cont spironolactone, Toprol; hold Entresto given ERIK -cont Lipitor, amiodarone, digoxin, Eliquis #cholestatic LFTs -persistently elevated T bili, Alk Phos -transaminases wnl -congestive changes on CT, US showing GB wall thickening and IVC/HV distention -HIDA ordered -trend LFTs #umbilical hernia -CT negative for strangulation -remains reducible -monitor #FEN -no IVF -monitor and replete electrolytes -renal diet #PPx -DVT: eliquis -GI: not indicated #code -full #dispo -cont to monitor on telemetry Visit type - Emergency Visit Emergency Visit: No - New Patient This patient is new to me today: Yes Date on this admission: 08/25/18 - Critical Care Critical Care patient: No
--- NOTE | 2018-08-25 14:28 | PN ---
Progress Note, Physician History of Present Illness: AWAKE, ALERT NO C/O LEG PAIN AFEBRILE WOUND C/S NOTED - Current Medication List Current Medications: Active Medications Acetaminophen (Tylenol -) 650 mg PO Q4H PRN PRN Reason: PAIN SCALE 1-5 Last Admin: 08/24/18 17:52 Dose: 650 mg Amiodarone HCl (Cordarone -) 200 mg PO DAILY [facility] Last Admin: 08/25/18 10:17 Dose: 200 mg Apixaban (Eliquis -) 5 mg PO BID [facility] Last Admin: 08/25/18 10:17 Dose: 5 mg Atorvastatin Calcium (Lipitor -) 20 mg PO HS [facility] Last Admin: 08/24/18 21:21 Dose: 20 mg Digoxin (Lanoxin -) 0.125 mg PO Q48H [facility] Last Admin: 08/24/18 09:36 Dose: 0.125 mg Piperacillin Sod/Tazobactam (Sod 2.25 gm/ Dextrose) 50 mls @ 100 mls/hr IVPB Q8H-IV [facility]; Protocol Last Admin: 08/25/18 10:17 Dose: 100 mls/hr Metoprolol Succinate (Toprol Xl -) 50 mg PO DAILY [facility] Last Admin: 08/25/18 10:17 Dose: 50 mg Spironolactone (Aldactone -) 25 mg PO DAILY [facility] Last Admin: 08/25/18 10:17 Dose: 25 mg - Objective Vital Signs: Vital Signs Temperature 97.9 F 08/25/18 13:33 Pulse Rate 61 08/25/18 13:33 Respiratory Rate 16 08/25/18 13:33 Blood Pressure 90/59 L 08/25/18 13:33 O2 Sat by Pulse Oximetry (%) 97 08/25/18 08:42 Constitutional: Yes: No Distress, Obese Eyes: Yes: Conjunctiva Clear Cardiovascular: Yes: Regular Rate and Rhythm, S1, S2 Respiratory: Yes: Diminished Gastrointestinal: Yes: Normal Bowel Sounds, Soft. No: Tenderness Extremities: Yes: Other (DECREASED ERYTHEMA / WARMTH LE B/L) Edema: Yes Edema: LLE: 2+, RLE: 2+ Labs: CBC, BMP 08/25/18 06:10 08/25/18 06:10 INR, PTT INR 1.87 (0.83-1.09) H 05/30/19 16:55 Assessment/Plan CELLULITIS LE B/L IMPROVED LACTIC ACIDOSIS RESOLVED AZOTEMIA HX AVR SUBSTITUTE CEFTRIAXONE 2GM IVPB Q24H
--- NOTE | 2018-08-25 15:29 | ECHO ---
Name: ESTEPHANIA RAMIREZ Exam:Adult Echocardiogram Study Date: 08/25/2018 10:34 AM Age: 67 yrs Reason For Study: prosthetiuc arotic valve Height: 67 in Weight: 230 lb BSA: 2.1 m2 MMode/2D Measurements & Calculations IVSd: 0.88 cm Ao root diam: 2.6 cm LVIDd: 5.4 cm LA dimension: 4.5 cm LVIDs: 4.1 cm LVPWd: 0.87 cm EDV(Teich): 143.6 ml LVOT diam: 1.9 cm ESV(Teich): 74.3 ml Doppler Measurements & Calculations MV E max marvin: 104.6 cm/sec Ao V2 max: 248.9 cm/sec Ao max P.8 mmHg Ao V2 mean: 181.9 cm/sec Ao mean P.8 mmHg Ao V2 VTI: 51.3 cm SOL(I,D): 0.71 cm2 SOL(V,D): 0.76 cm2 LV V1 max P.9 mmHg SV(LVOT): 36.6 ml LV V1 mean P.1 mmHg LV V1 max: 68.8 cm/sec LV V1 mean: 49.0 cm/sec LV V1 VTI: 13.3 cm TR max marvin: 261.4 cm/sec Med Peak E' Marvin: 4.9 cm/sec TR max P.4 mmHg Med E/e': 21.2 Lat Peak E' Marvin: 5.6 cm/sec Lat E/e': 18.8 Procedure A complete two-dimensional transthoracic echocardiogram was performed (2D, M-mode, Doppler and color flow Doppler). Technically limited study. Left Ventricle The left ventricle is normal in size. Left ventricular systolic function is moderate to severely redu oswaldo. Ejection Fraction = 30-35%. There is moderate to severe global hypokinesis of the left ventricle. Right Ventricle The right ventricle is not well visualized. There is a pacemaker lead in the right ventricle. Atria The left atrium is mildly dilated. The right atrium is mildly dilated. Mitral Valve The mitral valve is normal in structure and function. There is mild mitral regurgitation. Tricuspid Valve The tricuspid valve is normal in structure and function. There is mild tricuspid regurgitation. Pulmo nary artery systolic pressure is at least 34 mmHg if RA pressure is assumed 3 mmHg. Aortic Valve There is a bioprosthetic aortic valve. The prosthetic aortic valve is well-seated. No aortic regurgit ation is present. Pulmonic Valve The pulmonic valve is not well visualized. Trace pulmonic valvular regurgitation. Great Vessels The aortic root is normal size. Pericardium/Pleura There is no pericardial effusion. Interpretation Summary Technically limited study The left ventricle is normal in size. Left ventricular systolic function is moderate to severely reduced. There is moderate to severe global hypokinesis of the left ventricle. Ejection Fraction = 30-35%. The right ventricle is not well visualized. There is a pacemaker lead in the right ventricle. The left atrium is mildly dilated. The right atrium is mildly dilated. There is mild mitral regurgitation. There is mild tricuspid regurgitation. Pulmonary artery systolic pressure is at least 34 mmHg if RA pressure is assumed 3 mmHg There is a bioprosthetic aortic valve. The prosthetic aortic valve is well-seated. No aortic regurgitation is present. Trace pulmonic valvular regurgitation. There is no pericardial effusion. Previous study is not available for comparison Sharif Baker MD 08/25/2018 03:28 PM
[2018-08-25] MEDS ORDERED: DEXTROSE 5%-WATER 100 ML IVPB ONE (15:56)
[2018-08-25] MEDS: CEFTRIAXONE 2 GM in DEXTROSE 5%-WATER 100 ML IVPB SCH (16:05)
[2018-08-25] MEDS ORDERED: PT OWN MED DRAWER 7, Y5N ONE (17:46)
[2018-08-25] MEDS: ATORVASTATIN CA 20 MG TABLET (FP) PO SCH (22:41)
[2018-08-25] MEDS: ACETAMINOPHEN 325 MG TABLET (FP) PO PRN (22:49)
[2018-08-26 07:59] LABS: HEMATOCRIT 40.3 % (35.4-49); MCH 30.3 pg (25.7-33.7); MCHC 32.3 g/dl (32.0-35.9); MEAN CELL VOLUME 93.7 fl (80-96); MEAN PLT VOLUME 8.4 fl (7.5-11.1); MONO % 17.3 % (3.8-10.2); NEUT % 62.7 % (42.8-82.8); PLATELET COUNT 217 K/MM3 (134-434); RDW 18.2 % (11.9-15.9); WHITE BLOOD COUNT 9.1 K/mm3 (4.0-10.0)
[2018-08-26 08:08] LABS: BILIRUBIN,DIRECT 1.7 mg/dL (0.0-0.2); BILIRUBIN,TOTAL 2.1 mg/dL (0.2-1); CALCIUM 9.1 mg/dL (8.5-10.1); CREATININE 2.8 mg/dL (0.55-1.3); MAGNESIUM 2.8 mg/dL (1.8-2.4); PHOSPHOROUS 4.6 mg/dL (2.5-4.9); POTASSIUM 4.2 mmol/L (3.5-5.1); TOT PROT 7.1 g/dl (6.4-8.2)
--- NOTE | 2018-08-26 11:43 | PN ---
Progress Note, Physician Chief Complaint: Pt A&Ox3; no chest pain, palpitations, or dyspnea.Upset because he was not allowed to go to the cafeteria. History of Present Illness: The patient is a 67-year-old white male with a past medical history significant for abdominal hernia s/p repair, CHF s/p AICD ([facility]), AVR on Eliquis, reportedly had coronary angiogram showing non-obstructive CAD, HTN, hyperlipidemia, obesity, who presents to the emergency department with abdominal pain. The patient presents with a month of umbilical hernia pain, that worsened 2 days ago. The patient reports he is able to reduce the hernia. Also reports SOB and reduced exercise tolerance to 15 feet over the last week. Denies CP, dizziness, headache, weakness/numbness. Denies fever, chills, nausea , diarrhea, or constipation. Allergies: NKDA Surgical history: Hernia repair and aortic valve replacement. Social history: Former smoker. PCP: None reported. - Current Medication List Current Medications: Active Medications Acetaminophen (Tylenol -) 650 mg PO Q4H PRN PRN Reason: PAIN SCALE 1-5 Last Admin: 08/25/18 22:49 Dose: 650 mg Amiodarone HCl (Cordarone -) 200 mg PO DAILY [facility] Last Admin: 08/25/18 10:17 Dose: 200 mg Apixaban (Eliquis -) 5 mg PO BID [facility] Last Admin: 08/25/18 22:41 Dose: 5 mg Atorvastatin Calcium (Lipitor -) 20 mg PO HS [facility] Last Admin: 08/25/18 22:41 Dose: 20 mg Digoxin (Lanoxin -) 0.125 mg PO Q48H [facility] Last Admin: 08/24/18 09:36 Dose: 0.125 mg Ceftriaxone Sodium 2 gm/ (Dextrose) 100 mls @ 200 mls/hr IVPB DAILY [facility]; Protocol Last Admin: 08/25/18 16:05 Dose: 200 mls/hr Metoprolol Succinate (Toprol Xl -) 50 mg PO DAILY [facility] Last Admin: 08/25/18 10:17 Dose: 50 mg Spironolactone (Aldactone -) 25 mg PO DAILY [facility] Last Admin: 08/25/18 10:17 Dose: 25 mg - Objective Vital Signs: Vital Signs Temperature 97.6 F 08/26/18 05:50 Pulse Rate 61 08/26/18 05:50 Respiratory Rate 16 08/26/18 05:50 Blood Pressure 94/56 L 08/26/18 05:50 O2 Sat by Pulse Oximetry (%) 97 08/25/18 21:00 Constitutional: Yes: Obese Eyes: Yes: WNL HENT: Yes: WNL Neck: Yes: WNL Cardiovascular: Yes: Regular Rate and Rhythm Respiratory: Yes: WNL Gastrointestinal: Yes: Soft ...Rectal Exam: Yes: Deferred Genitourinary: No: Anuria Musculoskeletal: Yes: Muscle Weakness Extremities: Yes: Cool Edema: Yes Edema: LLE: 1+, RLE: 1+ Peripheral Pulses WNL: No Integumentary: Yes: Venous Stasis Changes, Other Wound/Incision: Yes: Dressing Dry and Intact Neurological: Yes: Alert, Oriented, Weakness Psychiatric: Yes: Other Labs: CBC, BMP 08/26/18 07:15 08/26/18 07:15 INR, PTT INR 1.87 (0.83-1.09) H 08/21/18 16:55 Abnormal Lab Results 08/26/18 08/27/18 08/27/18 07:15 07:10 07:10 RDW 18.5 H Monocytes % 13.2 H Anion Gap 7 L BUN 48 H 46 H Creatinine 2.8 H 2.7 H Random Glucose 70 L 65 L Magnesium 2.8 H 2.8 H Total Bilirubin 2.1 H 2.2 H Direct Bilirubin 1.7 H 1.6 H Alkaline Phosphatase 161 H 166 H Albumin 3.0 L 3.3 L - ....Imaging Other: Image Reviewed (telemetry: AV pacing) Problem List - Problems (1) Acute on chronic systolic CHF (congestive heart failure) Assessment/Plan: IECHO: moderately severe LV dysfunction and enlargemetn. Will discontinue digoxin (on amiodarone; continued renal dysfunction; level 1.18 on q 48 hour dosing: risks of digoxin s/es are high, especially when on amiodarone; HR presently well-controlled on amidarone and metoprolol). Restart Entresto when BP and renal function allow. Code(s): I50.23 - ACUTE ON CHRONIC SYSTOLIC (CONGESTIVE) HEART FAILURE (2) Cellulitis Assessment/Plan: on antibiotics Remains with billateral 2 + pitting edema, dressed LEs. dressing changes; wound care Code(s): L03.90 - CELLULITIS, UNSPECIFIED (3) Pneumonia Code(s): J18.9 - PNEUMONIA, UNSPECIFIED ORGANISM (4) H/O aortic valve replacement Assessment/Plan: bioprosthetic AOv; no abnormalities mentioned on ECHO regarding the valve. Code(s): Z95.2 - PRESENCE OF PROSTHETIC HEART VALVE (5) Hyperlipidemia Code(s): E78.5 - HYPERLIPIDEMIA, UNSPECIFIED (6) Atrial fibrillation Assessment/Plan: On amiodarone and metoprolol ER. On aixaban. Code(s): I48.91 - UNSPECIFIED ATRIAL FIBRILLATION (7) Ventricular arrhythmia Code(s): I49.9 - CARDIAC ARRHYTHMIA, UNSPECIFIED
[2018-08-26] MEDS ORDERED: DEXTROSE 5%-WATER 100 ML IVPB ONE (12:03)
[2018-08-26] MEDS: CEFTRIAXONE 2 GM in DEXTROSE 5%-WATER 100 ML IVPB SCH (12:18)
[2018-08-26] MEDS: SPIRONOLACTONE 25 MG TABLET (FP) PO SCH (12:23)
[2018-08-26] MEDS: APIXABAN 5 MG TABLET PO SCH ×2 (12:23→21:13)
[2018-08-26] MEDS: AMIODARONE HCL 200 MG TABLET (FP) PO SCH (12:23)
[2018-08-26] MEDS: DIGOXIN 0.125 MG TABLET (FP) PO SCH (12:24)
--- NOTE | 2018-08-26 13:16 | PN ---
Progress Note, Physician History of Present Illness: AWAKE, ALERT NO C/O LEG PAIN AFEBRILE WOUND C/S NOTED - Current Medication List Current Medications: Active Medications Acetaminophen (Tylenol -) 650 mg PO Q4H PRN PRN Reason: PAIN SCALE 1-5 Last Admin: 08/25/18 22:49 Dose: 650 mg Amiodarone HCl (Cordarone -) 200 mg PO DAILY [facility] Last Admin: 08/26/18 12:23 Dose: 200 mg Apixaban (Eliquis -) 5 mg PO BID [facility] Last Admin: 08/26/18 12:23 Dose: 5 mg Atorvastatin Calcium (Lipitor -) 20 mg PO HS [facility] Last Admin: 08/25/18 22:41 Dose: 20 mg Digoxin (Lanoxin -) 0.125 mg PO Q48H [facility] Last Admin: 08/26/18 12:24 Dose: 0.125 mg Ceftriaxone Sodium 2 gm/ (Dextrose) 100 mls @ 200 mls/hr IVPB DAILY [facility]; Protocol Last Admin: 08/26/18 12:18 Dose: 200 mls/hr Metoprolol Succinate (Toprol Xl -) 50 mg PO DAILY [facility] Last Admin: 08/26/18 12:23 Dose: 50 mg Spironolactone (Aldactone -) 25 mg PO DAILY [facility] Last Admin: 08/26/18 12:23 Dose: 25 mg - Objective Vital Signs: Vital Signs Temperature 97.6 F 08/26/18 05:50 Pulse Rate 62 08/26/18 12:24 Respiratory Rate 16 08/26/18 05:50 Blood Pressure 94/56 L 08/26/18 05:50 O2 Sat by Pulse Oximetry (%) 97 08/25/18 21:00 Constitutional: Yes: No Distress Cardiovascular: Yes: Regular Rate and Rhythm, S1, S2 Respiratory: Yes: CTA Bilaterally Gastrointestinal: Yes: Normal Bowel Sounds, Soft, Abdomen, Obese. No: Tenderness Extremities: Yes: Other (decreased erythema/ swelling LE bilaterally + erythema/ induration medial thighs) Edema: Yes Edema: LLE: 3+, RLE: 3+ Integumentary: Yes: Other (+ cyanosis, toes) Labs: CBC, BMP 08/26/18 07:15 08/26/18 07:15 INR, PTT INR 1.87 (0.83-1.09) H 08/21/18 16:55 Assessment/Plan CELLULITIS LE B/L IMPROVED LACTIC ACIDOSIS RESOLVED AZOTEMIA HX AVR CONTINUE CEFTRIAXONE 2GM IVPB Q24H
--- NOTE | 2018-08-26 13:18 | PN ---
Physical Exam: SUBJECTIVE: Patient seen and examined at bedside. No overnight events or acute complaints. OBJECTIVE: Vital Signs Period Temp Pulse Resp BP Sys/Ann Pulse Ox Last 24 Hr 97.5 F-98.1 F 60-62 16-18 88-107/56-64 97 GENERAL: A&Ox3, NAD HEENT: NC/AT, PERRLA, EOMI, MMM NECK: Trachea midline, full range of motion, supple. 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 SKIN: Warm, dry, normal turgor Laboratory Results - last 24 hr 08/26/18 08/26/18 07:15 07:15 WBC 9.1 RBC 4.30 Hgb 13.0 Hct 40.3 MCV 93.7 MCH 30.3 MCHC 32.3 RDW 18.2 H Plt Count 217 MPV 8.4 Absolute Neuts (auto) 5.7 Neutrophils % 62.7 Lymphocytes % 16.0 Monocytes % 17.3 H Eosinophils % 3.0 Basophils % 1.0 Nucleated RBC % 0 Sodium 136 Potassium 4.2 Chloride 100 Carbon Dioxide 29 Anion Gap 7 L BUN 48 H Creatinine 2.8 H Est GFR (CKD-EPI)AfAm 25.88 Est GFR (CKD-EPI)NonAf 22.33 Random Glucose 70 L Calcium 9.1 Phosphorus 4.6 Magnesium 2.8 H Total Bilirubin 2.1 H Direct Bilirubin 1.7 H AST 21 ALT 19 Alkaline Phosphatase 161 H Total Protein 7.1 Albumin 3.0 L Digoxin 1.13 Active Medications Generic Name Dose Route Start Last Admin Trade Name Freq PRN Reason Stop Dose Admin Acetaminophen 650 mg 08/24/18 17:27 08/25/18 22:49 Tylenol - PO 650 mg Q4H PRN Administration PAIN SCALE 1-5 Amiodarone HCl 200 mg 08/22/18 10:00 08/26/18 12:23 Cordarone - PO 200 mg DAILY [facility] Administration Apixaban 5 mg 08/22/18 10:00 08/26/18 12:23 Eliquis - PO 5 mg BID [facility]RE[facility] Administration Atorvastatin Calcium 20 mg 08/22/18 22:00 08/25/18 22:41 Lipitor - PO 20 mg HS ESTRELLITA Administration Digoxin 0.125 mg 08/24/18 10:00 08/26/18 12:24 Lanoxin - PO 0.125 mg Q48H ESTRELLITA Administration Ceftriaxone Sodium 2 gm/ 100 mls @ 200 mls/hr 08/25/18 14:30 08/26/18 12:18 Dextrose IVPB 200 mls/hr DAILY [facility] Administration Protocol Metoprolol Succinate 50 mg 08/23/18 10:00 08/26/18 12:23 Toprol Xl - PO 50 mg DAILY [facility] Administration Spironolactone 25 mg 08/22/18 10:00 08/26/18 12:23 Aldactone - PO 25 mg DAILY [facility]RE[facility] Administration ASSESSMENT/PLAN: 67 y/o M w/ PMHx sCHF, CAD s/p PPM/AICD, Afib on Eliquis, LE venous stasis, chronic reducible umbilical hernia s/p multiple Sx, aortic valve rupture during coronary thrombectomy s/p AV bioprosthetic replacement, p/w "knife"-like abd pain at hernia site, found to be in sepsis 2/2 LLE cellulitis #sepsis 2/2 LLE cellulitis -ID following -wound culture growing multiple organisms -BCx negative -cont Ceftriaxone (day 4 total ABx) -duplex negative #ERIK on CKD -hold torsemide -trend Cr, 2.8 today from 2.7, had been 1.7 2 months prior #systolic HF, CAD, Afib -cardiology following -new echo showing 30-35% EF w/ mod-sev global hypokinesis and prosthetic AV in good function, vs. 20% EF in 2017 -consider diuresis with stabilization of kidney function -cont spironolactone, Toprol; hold Entresto given ERIK -cont Lipitor, amiodarone, digoxin, Eliquis #cholestatic LFTs -persistently elevated T bili, Alk Phos -transaminases wnl -congestive changes on CT, US showing GB wall thickening and IVC/HV distention -HIDA performed, pending read -trend LFTs #umbilical hernia -CT negative for strangulation -remains reducible -monitor #FEN -no IVF -monitor and replete electrolytes -renal diet #PPx -DVT: eliquis -GI: not indicated #code -full #dispo -cont to monitor on telemetry Visit type - Emergency Visit Emergency Visit: No - New Patient This patient is new to me today: No - Critical Care Critical Care patient: No
--- NOTE | 2018-08-26 16:58 | PN ---
Teaching Attending Note Name of Resident: Antwan Brown ATTENDING PHYSICIAN STATEMENT I saw and evaluated the patient. I reviewed the resident's note and discussed the case with the resident. I agree with the resident's findings and plan as documented. SUBJECTIVE: No fever or chills. no CP , no SOB at rest , but SOB with walking to the bathroom OBJECTIVE: NAD CV: RRR, 2/6 SM at base . Lungs: CTAB Abd: not examined today as patient is not cooperative Ext:edema and erythema on medial thighs. R leg with improved erythema and edema. L leg wrapped and he refused exam A/P 67 y/o man with h/o CHF, AICD, A fib On Eliquis, LE venous stasis, abd wall hernia s/p Sx , aortic valve rupture during coronary thrombectomy, s/p AV replacement ( bioprosthetic ) who presented with abd pain and was found to have cellulitis of LE. 1- Sepsis due to LE cellulitis: - cont CTX 2- ERIK on CKD: base line in 07/11 1.7. - worse despite holding demadex. Hard to assess volume status but I think he is volume overloaded . - if cr cont to increase despite no diuresis, will consider starting demadex at 60 daily. will dw card in am 3- H/o Systolic heart failure: - echo reviewed. EF 30-35% - Demadex as above ( likely volume overloaded and need diuresis, will decide tomorrow) - cont BB. hold entresto. - tele reviewed. paced ryhthm, no events today again 4- Thickened gall bladder wall on US. HIDA with no filling of gall bladder . - will consult sx - keep NPO for now - add flagyl to ceftriaxone until gall bladder issue is figured 5- Abd wall hernia: no strangulation on CT scan . 6- DM : SSI for now 7- H/o A fib: - cont eliquis - off dig - cont amio 8- Dispo: HLOC
[2018-08-26] MEDS: ATORVASTATIN CA 20 MG TABLET (FP) PO SCH (21:13)
[2018-08-26] MEDS: ACETAMINOPHEN 325 MG TABLET (FP) PO PRN (21:14)
[2018-08-27] MEDS: ACETAMINOPHEN 325 MG TABLET (FP) PO PRN (06:34)
[2018-08-27 07:32] LABS: BASO % 1.6 % (0-2.0); EOS % 1.9 % (0-4.5); HEMATOCRIT 41.8 % (35.4-49); HEMOGLOBIN 13.5 GM/dL (11.7-16.9); LYMPH % 18.8 % (8-40); MCH 30.1 pg (25.7-33.7); MCHC 32.3 g/dl (32.0-35.9); MEAN CELL VOLUME 93.2 fl (80-96); MEAN PLT VOLUME 8.1 fl (7.5-11.1); MONO % 13.2 % (3.8-10.2); NEUT % 64.5 % (42.8-82.8); PLATELET COUNT 213 K/MM3 (134-434); RBC 4.48 M/mm3 (4.00-5.60); RDW 18.5 % (11.9-15.9)
[2018-08-27 08:00] LABS: ALBUMIN 3.3 g/dl (3.4-5.0); BILIRUBIN,DIRECT 1.6 mg/dL (0.0-0.2); BILIRUBIN,TOTAL 2.2 mg/dL (0.2-1); CALCIUM 9.6 mg/dL (8.5-10.1); CREATININE 2.7 mg/dL (0.55-1.3); MAGNESIUM 2.8 mg/dL (1.8-2.4); PHOSPHOROUS 4.1 mg/dL (2.5-4.9); POTASSIUM 4.4 mmol/L (3.5-5.1); TOT PROT 7.4 g/dl (6.4-8.2)
--- NOTE | 2018-08-27 08:45 | PN ---
Physical Exam: SUBJECTIVE: Patient seen and examined at bedside. No overnight events or acute complaints. OBJECTIVE: Vital Signs Period Temp Pulse Resp BP Sys/Ann Pulse Ox Last 24 Hr 97.4 F-97.7 F 60-62 18-20 99-107/54-75 94-97 GENERAL: A&Ox3, NAD HEENT: NC/AT, PERRLA, EOMI, MMM NECK: Trachea midline, full range of motion, supple. 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 SKIN: Warm, dry, normal turgor Laboratory Results - last 24 hr 08/26/18 08/27/18 08/27/18 07:15 07:10 07:10 WBC 6.0 RBC 4.48 Hgb 13.5 Hct 41.8 MCV 93.2 MCH 30.1 MCHC 32.3 RDW 18.5 H Plt Count 213 MPV 8.1 Absolute Neuts (auto) 3.9 Neutrophils % 64.5 Lymphocytes % 18.8 Monocytes % 13.2 H Eosinophils % 1.9 Basophils % 1.6 Nucleated RBC % 0 Sodium 136 138 Potassium 4.2 4.4 Chloride 100 100 Carbon Dioxide 29 28 Anion Gap 7 L 10 BUN 48 H 46 H Creatinine 2.8 H 2.7 H Est GFR (CKD-EPI)AfAm 25.88 27.04 Est GFR (CKD-EPI)NonAf 22.33 23.33 Random Glucose 70 L 65 L Calcium 9.1 9.6 Phosphorus 4.6 4.1 Magnesium 2.8 H 2.8 H Total Bilirubin 2.1 H 2.2 H Direct Bilirubin 1.7 H 1.6 H AST 21 21 ALT 19 19 Alkaline Phosphatase 161 H 166 H Total Protein 7.1 7.4 Albumin 3.0 L 3.3 L Digoxin 1.13 Active Medications Generic Name Dose Route Start Last Admin Trade Name Freq PRN Reason Stop Dose Admin Acetaminophen 650 mg 08/24/18 17:27 08/27/18 06:34 Tylenol - PO 650 mg Q4H PRN Administration PAIN SCALE 1-5 Amiodarone HCl 200 mg 08/22/18 10:00 08/26/18 12:23 Cordarone - PO 200 mg DAILY [facility] Administration Apixaban 5 mg 08/22/18 10:00 08/26/18 21:13 Eliquis - PO 5 mg BID [facility]RE[facility]ITA Administration Atorvastatin Calcium 20 mg 08/22/18 22:00 08/26/18 21:13 Lipitor - PO 20 mg HS ESTRELLITA Administration Ceftriaxone Sodium 2 gm/ 100 mls @ 200 mls/hr 08/25/18 14:30 08/26/18 12:18 Dextrose IVPB 200 mls/hr DAILY ESTRE[facility]ITA Administration Protocol Metronidazole 500 mg in 100 mls @ 100 mls/hr 08/26/18 18:00 08/27/18 01:35 Flagyl 500mg Premixed Ivpb - IVPB 100 mls/hr Q8H-IV ESTRELLITA Administration Metoprolol Succinate 50 mg 08/23/18 10:00 08/26/18 12:23 Toprol Xl - PO 50 mg DAILY [facility] Administration Spironolactone 25 mg 08/22/18 10:00 08/26/18 12:23 Aldactone - PO 25 mg DAILY [facility] Administration ASSESSMENT/PLAN: 67 y/o M w/ PMHx sCHF, CAD s/p PPM/AICD, Afib on Eliquis, LE venous stasis, chronic reducible umbilical hernia s/p multiple Sx, aortic valve rupture during coronary thrombectomy s/p AV bioprosthetic replacement, p/w "knife"-like abd pain at hernia site, found to be in sepsis 2/2 LLE cellulitis #sepsis 2/2 LLE cellulitis -ID following -wound culture growing multiple organisms -BCx negative -cont Ceftriaxone (day 4 total ABx) -duplex negative #cholestatic LFTs -persistently elevated T bili, Alk Phos -transaminases wnl -HIDA demonstrating severe chronic cholecystitis vs. acute ductal obstruction -Sx consulted -NPO -trend LFTs #ERIK on CKD -nephrology following -Lasix -Cr baseline 2.2 per nephro -renal US pending #systolic HF, CAD, Afib -cardiology following -new echo showing 30-35% EF w/ mod-sev global hypokinesis and prosthetic AV in good function, vs. 20% EF in 2017 -consider diuresis with stabilization of kidney function -cont spironolactone, Toprol; hold Entresto given ERIK -cont Lipitor, amiodarone, digoxin, Eliquis #umbilical hernia -CT negative for strangulation -remains reducible -monitor #FEN -no IVF -monitor and replete electrolytes -NPO pending Sx evaluation #PPx -DVT: eliquis -GI: not indicated #code -full #dispo -cont to monitor on telemetry Visit type - Emergency Visit Emergency Visit: No - New Patient This patient is new to me today: No - Critical Care Critical Care patient: No
[2018-08-27] MEDS ORDERED: FUROSEMIDE 40 MG/4 ML INJECTABLE VIAL IVPUSH ONE ×2 (09:25→13:00)
[2018-08-27] MEDS ORDERED: DEXTROSE 5%-WATER 100 ML IVPB ONE (09:36)
[2018-08-27] MEDS: SPIRONOLACTONE 25 MG TABLET (FP) PO SCH (10:00)
[2018-08-27] MEDS: AMIODARONE HCL 200 MG TABLET (FP) PO SCH (10:00)
[2018-08-27] MEDS: CEFTRIAXONE 2 GM in DEXTROSE 5%-WATER 100 ML IVPB SCH (10:03)
--- NOTE | 2018-08-27 10:27 | PN ---
Progress Note, Physician History of Present Illness: The patient is a 67-year-old white male with a past medical history significant for abdominal hernia s/p repair, CHF s/p AICD ([facility]), AVR on Eliquis, reportedly had coronary angiogram showing non-obstructive CAD, HTN, hyperlipidemia, obesity, who presents to the emergency department with abdominal pain. The patient presents with a month of umbilical hernia pain, that worsened 2 days ago. The patient reports he is able to reduce the hernia. Also reports SOB and reduced exercise tolerance to 15 feet over the last week. Denies CP, dizziness, headache, weakness/numbness. Denies fever, chills, nausea , diarrhea, or constipation. Allergies: NKDA Surgical history: Hernia repair and aortic valve replacement. Social history: Former smoker. PCP: None reported. - Current Medication List Current Medications: Active Medications Acetaminophen (Tylenol -) 650 mg PO Q4H PRN PRN Reason: PAIN SCALE 1-5 Last Admin: 08/27/18 06:34 Dose: 650 mg Amiodarone HCl (Cordarone -) 200 mg PO DAILY [facility] Last Admin: 08/27/18 10:00 Dose: 200 mg Apixaban (Eliquis -) 5 mg PO BID [facility] Last Admin: 08/26/18 21:13 Dose: 5 mg Atorvastatin Calcium (Lipitor -) 20 mg PO HS [facility] Last Admin: 08/26/18 21:13 Dose: 20 mg Ceftriaxone Sodium 2 gm/ (Dextrose) 100 mls @ 200 mls/hr IVPB DAILY [facility]; Protocol Last Admin: 08/27/18 10:03 Dose: 200 mls/hr Metronidazole (Flagyl 500mg Premixed Ivpb -) 500 mg in 100 mls @ 100 mls/hr IVPB Q8H-IV [facility] Last Admin: 08/27/18 10:03 Dose: 100 mls/hr Metoprolol Succinate (Toprol Xl -) 50 mg PO DAILY [facility] Last Admin: 08/27/18 10:00 Dose: 50 mg Spironolactone (Aldactone -) 25 mg PO DAILY [facility] Last Admin: 08/27/18 10:00 Dose: 25 mg - Objective Vital Signs: Vital Signs Temperature 97.7 F 08/27/18 06:00 Pulse Rate 60 08/27/18 06:00 Respiratory Rate 18 08/27/18 06:00 Blood Pressure 105/75 08/27/18 06:00 O2 Sat by Pulse Oximetry (%) 97 08/26/18 21:00 Eyes: Yes: WNL, Conjunctiva Clear, EOM Intact HENT: Yes: WNL, Atraumatic, Normocephalic Neck: Yes: WNL, Supple, Trachea Midline Cardiovascular: Yes: WNL, Regular Rate and Rhythm Respiratory: Yes: WNL, Regular, CTA Bilaterally Gastrointestinal: Yes: WNL, Normal Bowel Sounds Genitourinary: Yes: WNL Musculoskeletal: Yes: WNL Extremities: Yes: WNL Edema: No Integumentary: Yes: WNL Neurological: Yes: WNL, Alert, Oriented ...Motor Strength: WNL Psychiatric: Yes: WNL Labs: CBC, BMP 08/27/18 07:10 08/27/18 07:10 INR, PTT INR 1.87 (0.83-1.09) H 08/21/18 16:55 Assessment/Plan - Problems (1) Acute on chronic systolic CHF (congestive heart failure) Assessment/Plan: IECHO: moderately severe LV dysfunction and enlargemetn. Will discontinue digoxin (on amiodarone; continued renal dysfunction; level 1.18 on q 48 hour dosing: risks of digoxin s/es are high, especially when on amiodarone; HR presently well-controlled on amidarone and metoprolol). Restart Entresto when BP and renal function allow. Code(s): I50.23 - ACUTE ON CHRONIC SYSTOLIC (CONGESTIVE) HEART FAILURE (2) Cellulitis Assessment/Plan: on antibiotics Remains with billateral 2 + pitting edema, dressed LEs. dressing changes; wound care Code(s): L03.90 - CELLULITIS, UNSPECIFIED (3) Pneumonia Code(s): J18.9 - PNEUMONIA, UNSPECIFIED ORGANISM (4) H/O aortic valve replacement Assessment/Plan: bioprosthetic AOv; no abnormalities mentioned on ECHO regarding the valve. Code(s): Z95.2 - PRESENCE OF PROSTHETIC HEART VALVE (5) Hyperlipidemia Code(s): E78.5 - HYPERLIPIDEMIA, UNSPECIFIED (6) Atrial fibrillation Assessment/Plan: On amiodarone and metoprolol ER. On aixaban. Code(s): I48.91 - UNSPECIFIED ATRIAL FIBRILLATION (7) Ventricular arrhythmia Code(s): I49.9 - CARDIAC ARRHYTHMIA, UNSPECIFIED
[2018-08-27] MEDS: APIXABAN 5 MG TABLET PO SCH ×2 (12:06→21:55)
--- NOTE | 2018-08-27 12:35 | CONSULT ---
Consult Consult Specialty:: Nephrology Reason for Consultation:: ckd - History of Present Illness Chief Complaint: abd pain History of Present Illness: Pt is a 67 year old make with pmhx of ckd, a-fib, htn, and cad who presents with abdominal pain. He does have a hernia. He was found to have elevated creatinine and I was called to evaluate him. He has history of CKD and follows with Dr Block. He does not know his baseline creatinine. He denies dysuria or hematuria. He does get sob with ambulation however he says that this is chronic. He denies chest pain. He complains of lower ext edema. He has a baseline family law mediator of about 2.2. - History Source History Provided By: Patient - Past Medical History Cardio/Vascular: Yes: HTN, MA Renal/: Yes: Renal Inusuff Psych: Yes: Anxiety, Other - Past Surgical History Past Surgical History: Yes: AICD, Hernia Repair, Valve Replacement - Alcohol/Substance Use Hx Alcohol Use: No - Smoking History Smoking history: Former smoker Have you smoked in the past 12 months: No Home Medications - Allergies Allergies/Adverse Reactions: Allergies Allergy/AdvReac Type Severity Reaction Status Date / Time No Known Allergies Allergy Verified 08/21/18 14:54 - Home Medications Home Medications: Ambulatory Orders Amiodarone HCl 200 mg PO DAILY 08/21/18 Apixaban [Eliquis -] 5 mg PO BID 08/21/18 Atorvastatin Ca [Lipitor] 20 mg PO HS 08/21/18 Digoxin [Digitek] 125 mcg PO DAILY 08/21/18 Metoprolol Tartrate [Lopressor -] 25 mg PO DAILY 08/21/18 Simethicone [Gas Relief 80] 80 mg PO TID 08/21/18 Spironolactone 25 mg PO DAILY 08/21/18 Torsemide 60 mg PO BID 08/21/18 Family Disease History - Family Disease History Family History: Denies Review of Systems - Review of Systems Constitutional: reports: No Symptoms Eyes: reports: No Symptoms HENT: reports: No Symptoms Neck: reports: No Symptoms Cardiovascular: reports: Edema Respiratory: reports: SOB on Exertion Gastrointestinal: reports: Abdominal Pain Genitourinary: reports: No Symptoms Integumentary: reports: No Symptoms Neurological: reports: No Symptoms Hematology/Lymphatic: reports: No Symptoms Psychiatric: reports: No Symptoms Physical Exam Vital Signs: Vital Signs Temperature 97.7 F 08/27/18 10:00 Pulse Rate 60 08/27/18 10:00 Respiratory Rate 18 08/27/18 10:00 Blood Pressure 104/59 L 08/27/18 10:00 O2 Sat by Pulse Oximetry (%) 97 08/27/18 10:00 Constitutional: Yes: Calm Eyes: Yes: Conjunctiva Clear HENT: Yes: Atraumatic Cardiovascular: Yes: S1, S2 Respiratory: Yes: CTA Bilaterally Gastrointestinal: Yes: Soft Renal/: Yes: WNL Musculoskeletal: Yes: WNL Edema: Yes Edema: LLE: 1+, RLE: 1+ Neurological: Yes: Oriented Psychiatric: Yes: Oriented Labs: CBC, BMP 08/27/18 07:10 08/27/18 07:10 Laboratory Tests 08/21/18 08/22/18 08/23/18 16:55 05:24 07:35 Creatinine 2.2 H 2.1 H 2.6 H 08/24/18 08/25/18 08/26/18 06:10 06:10 07:15 Creatinine 2.9 H 2.7 H 2.8 H 08/27/18 07:10 Creatinine 2.7 H Imaging - Results Chest X-ray: Report Reviewed Problem List - Problems (1) CKD (chronic kidney disease) Code(s): N18.9 - CHRONIC KIDNEY DISEASE, UNSPECIFIED (2) Acute on chronic systolic CHF (congestive heart failure) Code(s): I50.23 - ACUTE ON CHRONIC SYSTOLIC (CONGESTIVE) HEART FAILURE Assessment/Plan Current Medications Generic Name Dose Route Start Last Admin Trade Name Freq PRN Reason Stop Dose Admin Acetaminophen 650 mg 08/24/18 17:27 08/27/18 06:34 Tylenol - PO 650 mg Q4H PRN Administration PAIN SCALE 1-5 Amiodarone HCl 200 mg 08/22/18 10:00 08/27/18 10:00 Cordarone - PO 200 mg DAILY [facility]RE[facility]ITA Administration Apixaban 5 mg 08/22/18 10:00 08/27/18 12:06 Eliquis - PO 5 mg BID ESTRE[facility] Administration Atorvastatin Calcium 20 mg 08/22/18 22:00 08/26/18 21:13 Lipitor - PO 20 mg HS ESTRE[facility] Administration Ceftriaxone Sodium 2 gm/ 100 mls @ 200 mls/hr 08/25/18 14:30 08/27/18 10:03 Dextrose IVPB 200 mls/hr DAILY [facility] Administration Protocol Metronidazole 500 mg in 100 mls @ 100 mls/hr 08/26/18 18:00 08/27/18 10:03 Flagyl 500mg Premixed Ivpb - IVPB 100 mls/hr Q8H-IV ESTRELLITA Administration Metoprolol Succinate 50 mg 08/23/18 10:00 08/27/18 10:00 Toprol Xl - PO 50 mg DAILY ESTRE[facility]ITA Administration Spironolactone 25 mg 08/22/18 10:00 08/27/18 10:00 Aldactone - PO 25 mg DAILY ESTRELLITA Administration Impression 1. CKD 2. abd pain 3. htn 4. cad 5. abd hernia 6. hld Plan - will give another dose of lasix - baseline family law mediator 2.2 - check renal ultrasound - check ua - cardio follow up - monitor volume status
--- NOTE | 2018-08-27 16:17 | PN ---
Teaching Attending Note Name of Resident: Gurvinder Valdovinos ATTENDING PHYSICIAN STATEMENT I saw and evaluated the patient. I reviewed the resident's note and discussed the case with the resident. I agree with the resident's findings and plan as documented. SUBJECTIVE: Patient is comfortable with no acute distress, no shortness of breath. OBJECTIVE: Vital Signs Temperature 97.6 F 08/27/18 14:00 Pulse Rate 60 08/27/18 14:00 Respiratory Rate 16 08/27/18 14:00 Blood Pressure 101/64 08/27/18 14:00 O2 Sat by Pulse Oximetry (%) 97 08/27/18 10:00 GENERAL: The patient is awake, alert, and fully oriented, in no acute distress. HEAD: Normal with no signs of trauma. EYES: PERRL, extraocular movements intact, sclera anicteric, conjunctiva clear. ENT: Ears normal, oropharynx clear without exudates, moist mucous membranes. NECK: Trachea midline, full range of motion, supple. LUNGS: Breath sounds equal, clear to auscultation bilaterally, no wheezes, no crackles, no accessory muscle use. HEART: Regular rate and rhythm, S1, S2 without murmur, rub or gallop. ABDOMEN: Soft, nontender, nondistended, normoactive bowel sounds, no guarding, no rebound, no hepatosplenomegaly, no masses. EXTREMITIES: 2+ pulses, warm, well-perfused, no edema. NEUROLOGICAL: Cranial nerves II through XII grossly intact. Normal speech, gait not observed. PSYCH: Normal mood, normal affect. SKIN: Warm, dry, normal turgor, no rashes or lesions noted CBCD WBC 6.0 K/mm3 (4.0-10.0) 08/27/18 07:10 RBC 4.48 M/mm3 (4.00-5.60) 08/27/18 07:10 Hgb 13.5 GM/dL (11.7-16.9) 08/27/18 07:10 Hct 41.8 % (35.4-49) 08/27/18 07:10 MCV 93.2 fl (80-96) 08/27/18 07:10 MCHC 32.3 g/dl (32.0-35.9) 08/27/18 07:10 RDW 18.5 % (11.9-15.9) H 08/27/18 07:10 Plt Count 213 K/MM3 (134-434) 08/27/18 07:10 MPV 8.1 fl (7.5-11.1) 08/27/18 07:10 CMP Sodium 138 mmol/L (136-145) 08/27/18 07:10 Potassium 4.4 mmol/L (3.5-5.1) 08/27/18 07:10 Chloride 100 mmol/L (98-107) 08/27/18 07:10 Carbon Dioxide 28 mmol/L (21-32) 08/27/18 07:10 Anion Gap 10 MMOL/L (8-16) 08/27/18 07:10 BUN 46 mg/dL (7-18) H 08/27/18 07:10 Creatinine 2.7 mg/dL (0.55-1.3) H 08/27/18 07:10 Random Glucose 65 mg/dL (74-106) L 08/27/18 07:10 Calcium 9.6 mg/dL (8.5-10.1) 08/27/18 07:10 Total Bilirubin 2.2 mg/dL (0.2-1) H 08/27/18 07:10 AST 21 U/L (15-37) 08/27/18 07:10 ALT 19 U/L (13-61) 08/27/18 07:10 Alkaline Phosphatase 166 U/L (45-117) H 08/27/18 07:10 Total Protein 7.4 g/dl (6.4-8.2) 08/27/18 07:10 Albumin 3.3 g/dl (3.4-5.0) L 08/27/18 07:10 CARDIAC ENZYMES Troponin I 0.03 ng/ml (0.00-0.05) 08/21/18 16:55 Current Medications Generic Name Dose Route Start Last Admin Trade Name Freq PRN Reason Stop Dose Admin Acetaminophen 650 mg 08/24/18 17:27 08/27/18 06:34 Tylenol - PO 650 mg Q4H PRN Administration PAIN SCALE 1-5 Amiodarone HCl 200 mg 08/22/18 10:00 08/27/18 10:00 Cordarone - PO 200 mg DAILY ESTRELLITA Administration Apixaban 5 mg 08/22/18 10:00 08/27/18 12:06 Eliquis - PO 5 mg BID ESTRELLITA Administration Atorvastatin Calcium 20 mg 08/22/18 22:00 08/26/18 21:13 Lipitor - PO 20 mg HS ESTRELLITA Administration Ceftriaxone Sodium 2 gm/ 100 mls @ 200 mls/hr 08/25/18 14:30 08/27/18 10:03 Dextrose IVPB 200 mls/hr DAILY ESTRELLITA Administration Protocol Metronidazole 500 mg in 100 mls @ 100 mls/hr 08/26/18 18:00 08/27/18 10:03 Flagyl 500mg Premixed Ivpb - IVPB 100 mls/hr Q8H-IV ESTRELLITA Administration Metoprolol Succinate 50 mg 08/23/18 10:00 08/27/18 10:00 Toprol Xl - PO 50 mg DAILY ESTRELLITA Administration Spironolactone 25 mg 08/22/18 10:00 08/27/18 10:00 Aldactone - PO 25 mg DAILY ESTRELLITA Administration Home Medications Medication Instructions Recorded Amiodarone HCl 200 mg PO DAILY 08/21/18 Apixaban [Eliquis -] 5 mg PO BID 08/21/18 Atorvastatin Ca [Lipitor] 20 mg PO HS 08/21/18 Digoxin [Digitek] 125 mcg PO DAILY 08/21/18 Metoprolol Tartrate [Lopressor -] 25 mg PO DAILY 08/21/18 Simethicone [Gas Relief 80] 80 mg PO TID 08/21/18 Spironolactone 25 mg PO DAILY 08/21/18 Torsemide 60 mg PO BID 08/21/18 Microbiology 08/22/18 19:00 Blood - Peripheral Venous Blood Culture - Preliminary NO GROWTH OBTAINED AFTER 96 HOURS, INCUBATION TO CONTINUE FOR 1 DAYS. 08/22/18 19:15 Blood - Peripheral Venous Blood Culture - Preliminary NO GROWTH OBTAINED AFTER 96 HOURS, INCUBATION TO CONTINUE FOR 1 DAYS. 08/22/18 10:56 Cellulitis Gram Stain - Final 08/22/18 10:56 Cellulitis Wound Culture - Final Serratia Marcescens Klebsiella Oxytoca Staphylococcus Aureus ASSESSMENT AND PLAN: Patient is a 67yo male with PMhx of CHF, AICD, A fib On Eliquis, LE venous stasis, abd wall hernia s/p Sx , aortic valve rupture during coronary thrombectomy, s/p AV replacement ( bioprosthetic ) who presented with abdominal pain and was found to have cellulitis of LE. # S/p Sepsis due to LE cellulitis: on Rocephn and Flagyl # ERIK on CKD: base line cr/2.2 , nephro is on consult , check renal US, # H/o Systolic heart failure: echo reviewed. EF 30-35% , will give a dose of lasix and revaluate on a daily basis # Thickened gall bladder wall on US. HIDA scan: findings are nonspecific and could be to severe chronic cholecystitis or acute cystic duct obstruction. On Flagyl and Rocephin continue, will get surgery to evaluate the patient. # Abd wall hernia: no strangulation on CT scan . # DM : SSI for now # H/o A fib: on eliquis , off dig , continue amiodarone DVT Px: Eliquis surgical consult
[2018-08-27] MEDS: ATORVASTATIN CA 20 MG TABLET (FP) PO SCH (21:55)
--- NOTE | 2018-08-28 07:26 | PN ---
Physical Exam: SUBJECTIVE: Patient seen and examined at bedside. No overnight events or acute complaints. NPO for surgery eval OBJECTIVE: Vital Signs Period Temp Pulse Resp BP Sys/Ann Pulse Ox Last 24 Hr 97.3 F-98.0 F 60-61 16-22 98-121/59-73 97-97 GENERAL: A&Ox3, NAD HEENT: NC/AT, PERRLA, EOMI, MMM NECK: Trachea midline, full range of motion, supple. 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 SKIN: Warm, dry, normal turgor Laboratory Results - last 24 hr 08/27/18 08/27/18 07:10 07:10 WBC 6.0 RBC 4.48 Hgb 13.5 Hct 41.8 MCV 93.2 MCH 30.1 MCHC 32.3 RDW 18.5 H Plt Count 213 MPV 8.1 Absolute Neuts (auto) 3.9 Neutrophils % 64.5 Lymphocytes % 18.8 Monocytes % 13.2 H Eosinophils % 1.9 Basophils % 1.6 Nucleated RBC % 0 Sodium 138 Potassium 4.4 Chloride 100 Carbon Dioxide 28 Anion Gap 10 BUN 46 H Creatinine 2.7 H Est GFR (CKD-EPI)AfAm 27.04 Est GFR (CKD-EPI)NonAf 23.33 Random Glucose 65 L Calcium 9.6 Phosphorus 4.1 Magnesium 2.8 H Total Bilirubin 2.2 H Direct Bilirubin 1.6 H AST 21 ALT 19 Alkaline Phosphatase 166 H Total Protein 7.4 Albumin 3.3 L Active Medications Generic Name Dose Route Start Last Admin Trade Name Freq PRN Reason Stop Dose Admin Acetaminophen 650 mg 08/24/18 17:27 08/27/18 06:34 Tylenol - PO 650 mg Q4H PRN Administration PAIN SCALE 1-5 Amiodarone HCl 200 mg 08/22/18 10:00 08/27/18 10:00 Cordarone - PO 200 mg DAILY ESTRELLITA Administration Apixaban 5 mg 08/22/18 10:00 08/27/18 21:55 Eliquis - PO 5 mg BID ESTRELLITA Administration Atorvastatin Calcium 20 mg 08/22/18 22:00 08/27/18 21:55 Lipitor - PO 20 mg HS ESTRELLITA Administration Ceftriaxone Sodium 2 gm/ 100 mls @ 200 mls/hr 08/25/18 14:30 08/27/18 10:03 Dextrose IVPB 200 mls/hr DAILY ESTRELLITA Administration Protocol Metronidazole 500 mg in 100 mls @ 100 mls/hr 08/26/18 18:00 08/28/18 02:55 Flagyl 500mg Premixed Ivpb - IVPB 100 mls/hr Q8H-IV ESTRELLITA Administration Metoprolol Succinate 50 mg 08/23/18 10:00 08/27/18 10:00 Toprol Xl - PO 50 mg DAILY ESTRELLITA Administration Spironolactone 25 mg 08/22/18 10:00 08/27/18 10:00 Aldactone - PO 25 mg DAILY ESTRELLITA Administration US/KIDNEY / RENAL US Renal ultrasound Clinical information: acute kidney injury No hydronephrosis is seen. The kidneys appear unremarkable in position, cortical thickness, echogenicity and size. The left kidney measures approximately 11 cm in length, the right kidney 9.7 cm. No obvious calculus or mass lesion is noted within the limitations of sonography. There is no perirenal fluid collection. Impression: The kidneys appear unremarkable demonstrating no definite sonographic abnormality. The partially imaged upper abdomen demonstrates perihepatic and perisplenic ascites. There is also partial imaging of a right pleural effusion. Reported By: Lico Last MD 08/27/181918 ASSESSMENT/PLAN: 67 y/o M w/ PMHx sCHF, CAD s/p PPM/AICD, Afib on Eliquis, LE venous stasis, chronic reducible umbilical hernia s/p multiple Sx, aortic valve rupture during coronary thrombectomy s/p AV bioprosthetic replacement, p/w "knife"-like abd pain at hernia site, found to be in sepsis 2/2 LLE cellulitis #sepsis 2/2 LLE cellulitis -ID following -wound culture growing multiple organisms -BCx negative -cont Ceftriaxone (day 5 total ABx) -duplex negative #cholestatic LFTs -persistently elevated T bili, Alk Phos -transaminases wnl -HIDA demonstrating severe chronic cholecystitis vs. acute ductal obstruction -Sx consulted -NPO pending sx eval. -trend LFTs #ERIK on CKD -nephrology following -s/p Lasix -Cr baseline 2.2 per nephro -renal US reviewed above #systolic HF, CAD, Afib -cardiology following -new echo showing 30-35% EF w/ mod-sev global hypokinesis and prosthetic AV in good function, vs. 20% EF in 2017 -consider diuresis with stabilization of kidney function -cont spironolactone, Toprol; hold Entresto given ERIK -cont Lipitor, amiodarone, digoxin, Eliquis #umbilical hernia -CT negative for strangulation -remains reducible -monitor #FEN -no IVF -monitor and replete electrolytes -NPO pending Sx evaluation, if no sx will resume renal diet #PPx -DVT: eliquis -GI: not indicated #code -full #dispo -cont to monitor on telemetry Visit type - Emergency Visit Emergency Visit: Yes ED Registration Date: 08/22/18 Care time: The patient presented to the Emergency Department on the above date and was hospitalized for further evaluation of their emergent condition. - New Patient This patient is new to me today: Yes Date on this admission: 08/28/18 - Critical Care Critical Care patient: No
[2018-08-28 08:01] LABS: EOS % 1.8 % (0-4.5); HEMATOCRIT 40.8 % (35.4-49); HEMOGLOBIN 13.4 GM/dL (11.7-16.9); LYMPH % 15.5 % (8-40); MCH 30.4 pg (25.7-33.7); MCHC 32.7 g/dl (32.0-35.9); MEAN PLT VOLUME 8.2 fl (7.5-11.1); MONO % 14.4 % (3.8-10.2); NEUT % 67.3 % (42.8-82.8); PLATELET COUNT 187 K/MM3 (134-434); RBC 4.39 M/mm3 (4.00-5.60); RDW 18.3 % (11.9-15.9); WHITE BLOOD COUNT 6.1 K/mm3 (4.0-10.0)
[2018-08-28 08:37] LABS: ALBUMIN 3.2 g/dl (3.4-5.0); BILIRUBIN,DIRECT 1.4 mg/dL (0.0-0.2); BILIRUBIN,TOTAL 1.8 mg/dL (0.2-1); CALCIUM 9.4 mg/dL (8.5-10.1); CREATININE 2.5 mg/dL (0.55-1.3); MAGNESIUM 2.8 mg/dL (1.8-2.4); PHOSPHOROUS 3.8 mg/dL (2.5-4.9); POTASSIUM 3.9 mmol/L (3.5-5.1); TOT PROT 7.2 g/dl (6.4-8.2)
[2018-08-28] MEDS ORDERED: DEXTROSE 5%-WATER 100 ML IVPB ONE (09:16)
[2018-08-28] MEDS: SPIRONOLACTONE 25 MG TABLET (FP) PO SCH (09:51)
[2018-08-28] MEDS: CEFTRIAXONE 2 GM in DEXTROSE 5%-WATER 100 ML IVPB SCH (09:52)
[2018-08-28] MEDS: AMIODARONE HCL 200 MG TABLET (FP) PO SCH (09:52)
[2018-08-28] MEDS: APIXABAN 5 MG TABLET PO SCH ×2 (09:54→22:27)
--- NOTE | 2018-08-28 11:00 | PN ---
Progress Note (short form) - Note Progress Note: Attending Surgeon Seen in f/u; he has no c/o today; he seems to be confused about his tx. plan VSS AF abdo-soft;flat and non tender; reducible umbilical hernia; flank edema is present b/l; o/w negative labs noted and results of dx. imaging echo w/ EF-30-35% IMP: doubt acute cholecystitis or symptomatic biliary colic; cholelithiasis is present. PLAN: There is no indication for lap mariela in this patient at this time; patient is a prohibitive operative risk and can be manged expectantly/ conservatively. Ambrosio Hickman MD FACS
--- NOTE | 2018-08-28 12:54 | PN ---
Progress Note, Physician History of Present Illness: Pt seen and examined at bedside. He is awake and alert. He has appetite and is asking for food. - Current Medication List Current Medications: Active Medications Acetaminophen (Tylenol -) 650 mg PO Q4H PRN PRN Reason: PAIN SCALE 1-5 Last Admin: 08/27/18 06:34 Dose: 650 mg Amiodarone HCl (Cordarone -) 200 mg PO DAILY [facility] Last Admin: 08/28/18 09:52 Dose: 200 mg Apixaban (Eliquis -) 5 mg PO BID [facility] Last Admin: 08/28/18 09:54 Dose: 5 mg Atorvastatin Calcium (Lipitor -) 20 mg PO HS [facility] Last Admin: 08/27/18 21:55 Dose: 20 mg Ceftriaxone Sodium 2 gm/ (Dextrose) 100 mls @ 200 mls/hr IVPB DAILY [facility]; Protocol Last Admin: 08/28/18 09:52 Dose: 200 mls/hr Metronidazole (Flagyl 500mg Premixed Ivpb -) 500 mg in 100 mls @ 100 mls/hr IVPB Q8H-IV [facility] Last Admin: 08/28/18 09:52 Dose: 100 mls/hr Metoprolol Succinate (Toprol Xl -) 50 mg PO DAILY [facility] Last Admin: 08/28/18 09:52 Dose: 50 mg Spironolactone (Aldactone -) 25 mg PO DAILY [facility] Last Admin: 08/28/18 09:51 Dose: 25 mg - Objective Vital Signs: Vital Signs Temperature 98.0 F 08/28/18 10:00 Pulse Rate 63 08/28/18 10:00 Respiratory Rate 16 08/28/18 10:00 Blood Pressure 104/56 L 08/28/18 10:00 O2 Sat by Pulse Oximetry (%) 97 08/28/18 09:00 Constitutional: Yes: Calm Eyes: Yes: Conjunctiva Clear HENT: Yes: Atraumatic Cardiovascular: Yes: S1, S2 Respiratory: Yes: CTA Bilaterally Gastrointestinal: Yes: Soft Musculoskeletal: Yes: WNL Edema: Yes Edema: LLE: 2+, RLE: 2+ Neurological: Yes: Oriented Psychiatric: Yes: Oriented Labs: CBC, BMP 08/28/18 07:28 08/28/18 07:28 INR, PTT INR 1.87 (0.83-1.09) H 08/21/18 16:55 Problem List - Problems (1) CKD (chronic kidney disease) Code(s): N18.9 - CHRONIC KIDNEY DISEASE, UNSPECIFIED (2) Acute on chronic systolic CHF (congestive heart failure) Code(s): I50.23 - ACUTE ON CHRONIC SYSTOLIC (CONGESTIVE) HEART FAILURE Assessment/Plan Current Medications Generic Name Dose Route Start Last Admin Trade Name Freq PRN Reason Stop Dose Admin Acetaminophen 650 mg 08/24/18 17:27 08/27/18 06:34 Tylenol - PO 650 mg Q4H PRN Administration PAIN SCALE 1-5 Amiodarone HCl 200 mg 08/22/18 10:00 08/28/18 09:52 Cordarone - PO 200 mg DAILY ESTRELLITA Administration Apixaban 5 mg 08/22/18 10:00 08/28/18 09:54 Eliquis - PO 5 mg BID ESTRELLITA Administration Atorvastatin Calcium 20 mg 08/22/18 22:00 08/27/18 21:55 Lipitor - PO 20 mg HS ESTRELLITA Administration Ceftriaxone Sodium 2 gm/ 100 mls @ 200 mls/hr 08/25/18 14:30 08/28/18 09:52 Dextrose IVPB 200 mls/hr DAILY ESTRELLITA Administration Protocol Metronidazole 500 mg in 100 mls @ 100 mls/hr 08/26/18 18:00 08/28/18 09:52 Flagyl 500mg Premixed Ivpb - IVPB 100 mls/hr Q8H-IV ESTRELLITA Administration Metoprolol Succinate 50 mg 08/23/18 10:00 08/28/18 09:52 Toprol Xl - PO 50 mg DAILY ESTRELLITA Administration Spironolactone 25 mg 08/22/18 10:00 08/28/18 09:51 Aldactone - PO 25 mg DAILY ESTRELLITA Administration Impression 1. CKD 2. abd pain 3. htn 4. cad 5. abd hernia 6. 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
[2018-08-28] MEDS ORDERED: FUROSEMIDE 40 MG/4 ML INJECTABLE VIAL IVPUSH ONE (13:15)
--- NOTE | 2018-08-28 16:22 | PN ---
Teaching Attending Note Name of Resident: Felice Kebede ATTENDING PHYSICIAN STATEMENT I saw and evaluated the patient. I reviewed the resident's note and discussed the case with the resident. I agree with the resident's findings and plan as documented. SUBJECTIVE: Patient is comfortable, with no acute distress. OBJECTIVE: Vital Signs Temperature 98.2 F 08/28/18 14:10 Pulse Rate 61 08/28/18 14:10 Respiratory Rate 20 08/28/18 14:10 Blood Pressure 101/65 08/28/18 14:10 O2 Sat by Pulse Oximetry (%) 97 08/28/18 09:00 GENERAL: The patient is awake, alert, and fully oriented, in no acute distress. HEAD: Normal with no signs of trauma. EYES: PERRL, extraocular movements intact, sclera anicteric, conjunctiva clear. ENT: Ears normal, oropharynx clear without exudates, moist mucous membranes. NECK: Trachea midline, full range of motion, supple. LUNGS: Breath sounds equal, clear to auscultation bilaterally, no wheezes, no crackles, no accessory muscle use. HEART: Regular rate and rhythm, S1, S2 without murmur, rub or gallop. ABDOMEN: Soft, nontender, nondistended, normoactive bowel sounds, no guarding, no rebound, no hepatosplenomegaly, no masses. EXTREMITIES: 2+ pulses, warm, well-perfused, no edema. NEUROLOGICAL: Cranial nerves II through XII grossly intact. Normal speech, gait not observed. PSYCH: Normal mood, normal affect. SKIN: Warm, dry, normal turgor, no rashes or lesions noted CBCD WBC 6.1 K/mm3 (4.0-10.0) 08/28/18 07:28 RBC 4.39 M/mm3 (4.00-5.60) 08/28/18 07:28 Hgb 13.4 GM/dL (11.7-16.9) 08/28/18 07:28 Hct 40.8 % (35.4-49) 08/28/18 07:28 MCV 93.0 fl (80-96) 08/28/18 07:28 MCHC 32.7 g/dl (32.0-35.9) 08/28/18 07:28 RDW 18.3 % (11.9-15.9) H 08/28/18 07:28 Plt Count 187 K/MM3 (134-434) 08/28/18 07:28 MPV 8.2 fl (7.5-11.1) 08/28/18 07:28 CMP Sodium 137 mmol/L (136-145) 08/28/18 07:28 Potassium 3.9 mmol/L (3.5-5.1) 08/28/18 07:28 Chloride 100 mmol/L (98-107) 08/28/18 07:28 Carbon Dioxide 26 mmol/L (21-32) 08/28/18 07:28 Anion Gap 11 MMOL/L (8-16) 08/28/18 07:28 BUN 44 mg/dL (7-18) H 08/28/18 07:28 Creatinine 2.5 mg/dL (0.55-1.3) H 08/28/18 07:28 Random Glucose 79 mg/dL (74-106) 08/28/18 07:28 Calcium 9.4 mg/dL (8.5-10.1) 08/28/18 07:28 Total Bilirubin 1.8 mg/dL (0.2-1) H 08/28/18 07:28 AST 21 U/L (15-37) 08/28/18 07:28 ALT 19 U/L (13-61) 08/28/18 07:28 Alkaline Phosphatase 164 U/L (45-117) H 08/28/18 07:28 Total Protein 7.2 g/dl (6.4-8.2) 08/28/18 07:28 Albumin 3.2 g/dl (3.4-5.0) L 08/28/18 07:28 CARDIAC ENZYMES Troponin I 0.03 ng/ml (0.00-0.05) 08/21/18 16:55 Current Medications Generic Name Dose Route Start Last Admin Trade Name Freq PRN Reason Stop Dose Admin Acetaminophen 650 mg 08/24/18 17:27 08/27/18 06:34 Tylenol - PO 650 mg Q4H PRN Administration PAIN SCALE 1-5 Amiodarone HCl 200 mg 08/22/18 10:00 08/28/18 09:52 Cordarone - PO 200 mg DAILY ESTRELLITA Administration Apixaban 5 mg 08/22/18 10:00 08/28/18 09:54 Eliquis - PO 5 mg BID ESTRELLITA Administration Atorvastatin Calcium 20 mg 08/22/18 22:00 08/27/18 21:55 Lipitor - PO 20 mg HS ESTRELLITA Administration Ceftriaxone Sodium 2 gm/ 100 mls @ 200 mls/hr 08/25/18 14:30 08/28/18 09:52 Dextrose IVPB 200 mls/hr DAILY ESTRELLITA Administration Protocol Metronidazole 500 mg in 100 mls @ 100 mls/hr 08/26/18 18:00 08/28/18 09:52 Flagyl 500mg Premixed Ivpb - IVPB 100 mls/hr Q8H-IV ESTRELLITA Administration Metoprolol Succinate 50 mg 08/23/18 10:00 08/28/18 09:52 Toprol Xl - PO 50 mg DAILY ESTRELLITA Administration Spironolactone 25 mg 08/22/18 10:00 08/28/18 09:51 Aldactone - PO 25 mg DAILY ESTRELLITA Administration Home Medications Medication Instructions Recorded Amiodarone HCl 200 mg PO DAILY 08/21/18 Apixaban [Eliquis -] 5 mg PO BID 08/21/18 Atorvastatin Ca [Lipitor] 20 mg PO HS 08/21/18 Digoxin [Digitek] 125 mcg PO DAILY 08/21/18 Metoprolol Tartrate [Lopressor -] 25 mg PO DAILY 08/21/18 Simethicone [Gas Relief 80] 80 mg PO TID 08/21/18 Spironolactone 25 mg PO DAILY 08/21/18 Torsemide 60 mg PO BID 08/21/18 Microbiology 08/22/18 19:00 Blood - Peripheral Venous Blood Culture - Final NO GROWTH AFTER 5 DAYS INCUBATION 08/22/18 19:15 Blood - Peripheral Venous Blood Culture - Final NO GROWTH AFTER 5 DAYS INCUBATION 08/22/18 10:56 Cellulitis Gram Stain - Final 08/22/18 10:56 Cellulitis Wound Culture - Final Serratia Marcescens Klebsiella Oxytoca Staphylococcus Aureus ASSESSMENT AND PLAN: Patient is a 67yo male with PMhx of CHF, AICD, A fib On Eliquis, LE venous stasis, abd wall hernia s/p Sx , aortic valve rupture during coronary thrombectomy, s/p AV replacement ( bioprosthetic ) who presented with abdominal pain and was found to have cellulitis of LE. # S/p Sepsis due to LE cellulitis: on Rocephin and Flagyl continue day #5 # ERIK on CKD: base line cr/2.2-->2.5 today , nephro is on the case, US is negative # H/o Systolic heart failure: echo reviewed. EF 30-35% , will give a dose of lasix and revaluate on a daily basis # Severe chronic cholecystitis or acute cystic duct obstruction with cholelithiasis: continue IV Flagyl and Rocephin, No surgical indication for lap mariela in this patient at this time as per surgeon Dr. Hickman. # Abd wall hernia: no strangulation on CT scan . # DM : SSI for now # H/o A fib: on eliquis , off dig , continue amiodarone DVT Px: Eliquis
[2018-08-28] MEDS: ATORVASTATIN CA 20 MG TABLET (FP) PO SCH (22:27)
[2018-08-29 07:51] LABS: BASO % 1.2 % (0-2.0); HEMATOCRIT 40.1 % (35.4-49); HEMOGLOBIN 13.1 GM/dL (11.7-16.9); LYMPH % 14.9 % (8-40); MCH 30.1 pg (25.7-33.7); MCHC 32.7 g/dl (32.0-35.9); MEAN CELL VOLUME 92.1 fl (80-96); MEAN PLT VOLUME 8.4 fl (7.5-11.1); MONO % 15.6 % (3.8-10.2); NEUT % 66.3 % (42.8-82.8); RBC 4.36 M/mm3 (4.00-5.60); RDW 18.4 % (11.9-15.9); WHITE BLOOD COUNT 6.3 K/mm3 (4.0-10.0)
[2018-08-29 08:24] LABS: BILIRUBIN,TOTAL 1.5 mg/dL (0.2-1); CALCIUM 9.3 mg/dL (8.5-10.1); CREATININE 2.4 mg/dL (0.55-1.3); MAGNESIUM 2.8 mg/dL (1.8-2.4); PHOSPHOROUS 3.4 mg/dL (2.5-4.9); TOT PROT 6.9 g/dl (6.4-8.2)
[2018-08-29] MEDS ORDERED: FUROSEMIDE 40 MG/4 ML INJECTABLE VIAL IVPUSH ONE (08:25)
[2018-08-29] MEDS ORDERED: DEXTROSE 5%-WATER 100 ML IVPB ONE (08:52)
[2018-08-29] MEDS: SPIRONOLACTONE 25 MG TABLET (FP) PO SCH (09:06)
[2018-08-29] MEDS: CEFTRIAXONE 2 GM in DEXTROSE 5%-WATER 100 ML IVPB SCH (09:06)
[2018-08-29] MEDS: APIXABAN 5 MG TABLET PO SCH (09:06)
[2018-08-29] MEDS: AMIODARONE HCL 200 MG TABLET (FP) PO SCH (09:06)
[2018-08-29] MEDS: ACETAMINOPHEN 325 MG TABLET (FP) PO PRN (10:08)
[2018-08-29 12:12] LABS: PLATELET COUNT 166 K/MM3 (134-434)
--- NOTE | 2018-08-29 12:12 | PN ---
Physical Exam: SUBJECTIVE: Patient seen and examined at bedside. No overnight events or acute complaints. Tolerating resumed diet without issue. OBJECTIVE: Vital Signs Period Temp Pulse Resp BP Sys/Ann Pulse Ox Last 24 Hr 97.3 F-98.2 F 60-66 17-20 101-108/61-71 97 GENERAL: A&Ox3, NAD HEENT: NC/AT, PERRLA, EOMI, MMM NECK: Trachea midline, full range of motion, supple. 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 SKIN: Warm, dry, normal turgor Laboratory Results - last 24 hr 08/29/18 08/29/18 07:10 07:10 WBC 6.3 RBC 4.36 Hgb 13.1 Hct 40.1 MCV 92.1 MCH 30.1 MCHC 32.7 RDW 18.4 H MPV 8.4 Absolute Neuts (auto) 4.2 Neutrophils % 66.3 Lymphocytes % 14.9 Monocytes % 15.6 H Eosinophils % 2.0 Basophils % 1.2 Nucleated RBC % 0 Sodium 138 Potassium 4.0 Chloride 102 Carbon Dioxide 28 Anion Gap 8 BUN 40 H Creatinine 2.4 H Est GFR (CKD-EPI)AfAm 31.18 Est GFR (CKD-EPI)NonAf 26.90 Random Glucose 94 Calcium 9.3 Phosphorus 3.4 Magnesium 2.8 H Total Bilirubin 1.5 H AST 21 ALT 18 Alkaline Phosphatase 165 H Total Protein 6.9 Albumin 3.0 L Active Medications Generic Name Dose Route Start Last Admin Trade Name Freq PRN Reason Stop Dose Admin Acetaminophen 650 mg 08/24/18 17:27 08/29/18 10:08 Tylenol - PO 650 mg Q4H PRN Administration PAIN SCALE 1-5 Amiodarone HCl 200 mg 08/22/18 10:00 08/29/18 09:06 Cordarone - PO 200 mg DAILY ESTRELLITA Administration Apixaban 5 mg 08/22/18 10:00 08/29/18 09:06 Eliquis - PO 5 mg BID ESTRELLITA Administration Atorvastatin Calcium 20 mg 08/22/18 22:00 08/28/18 22:27 Lipitor - PO 20 mg HS ESTRELLITA Administration Ceftriaxone Sodium 2 gm/ 100 mls @ 200 mls/hr 08/25/18 14:30 08/29/18 09:06 Dextrose IVPB 200 mls/hr DAILY ESTRELLITA Administration Protocol Metronidazole 500 mg in 100 mls @ 100 mls/hr 08/26/18 18:00 08/29/18 11:04 Flagyl 500mg Premixed Ivpb - IVPB 100 mls/hr Q8H-IV ESTRELLITA Administration Metoprolol Succinate 50 mg 08/23/18 10:00 08/29/18 09:06 Toprol Xl - PO 50 mg DAILY ESTRELLITA Administration Spironolactone 25 mg 08/22/18 10:00 08/29/18 09:06 Aldactone - PO 25 mg DAILY ESTRELLITA Administration ASSESSMENT/PLAN: 67 y/o M w/ PMHx sCHF, CAD s/p PPM/AICD, Afib on Eliquis, LE venous stasis, chronic reducible umbilical hernia s/p multiple Sx, aortic valve rupture during coronary thrombectomy s/p AV bioprosthetic replacement, p/w "knife"-like abd pain at hernia site, found to be in sepsis 2/2 LLE cellulitis #sepsis 2/2 LLE cellulitis -ID following -wound culture growing multiple organisms -BCx negative -cont Ceftriaxone (day 5 total ABx) -duplex negative #cholestatic LFTs -persistently elevated T bili, Alk Phos -transaminases wnl -HIDA read demonstrating severe chronic cholecystitis vs. acute ductal obstruction -Sx consulted, no indication for surgical intervention -trend LFTs #ERIK on CKD -nephrology following -renal US unremarkable -Cr improving -still volume overloaded, diuretics as per nephrology #systolic HF, CAD, Afib -cardiology following -new echo showing 30-35% EF w/ mod-sev global hypokinesis and prosthetic AV in good function, vs. 20% EF in 2017 -consider diuresis with stabilization of kidney function -cont spironolactone, Toprol; hold Entresto given ERIK -cont Lipitor, amiodarone, digoxin, Eliquis #umbilical hernia -CT negative for strangulation -remains reducible -monitor #FEN -no IVF -monitor and replete electrolytes -renal diet #PPx -DVT: eliquis -GI: not indicated #code -full #dispo -cont to monitor on telemetry -APS initiated, anticipate difficulty with safe discharge home, may consider SNF Visit type - Emergency Visit Emergency Visit: No - New Patient This patient is new to me today: No - Critical Care Critical Care patient: No
--- NOTE | 2018-08-29 12:32 | PN ---
Progress Note, Physician History of Present Illness: Pt seen and examined at bedside. He is awake and alert. He feels that the edema is improving. - Current Medication List Current Medications: Active Medications Acetaminophen (Tylenol -) 650 mg PO Q4H PRN PRN Reason: PAIN SCALE 1-5 Last Admin: 08/29/18 10:08 Dose: 650 mg Amiodarone HCl (Cordarone -) 200 mg PO DAILY [facility] Last Admin: 08/29/18 09:06 Dose: 200 mg Apixaban (Eliquis -) 5 mg PO BID [facility] Last Admin: 08/29/18 09:06 Dose: 5 mg Atorvastatin Calcium (Lipitor -) 20 mg PO HS [facility] Last Admin: 08/28/18 22:27 Dose: 20 mg Ceftriaxone Sodium 2 gm/ (Dextrose) 100 mls @ 200 mls/hr IVPB DAILY [facility]; Protocol Last Admin: 08/29/18 09:06 Dose: 200 mls/hr Metronidazole (Flagyl 500mg Premixed Ivpb -) 500 mg in 100 mls @ 100 mls/hr IVPB Q8H-IV [facility] Last Admin: 08/29/18 11:04 Dose: 100 mls/hr Metoprolol Succinate (Toprol Xl -) 50 mg PO DAILY [facility] Last Admin: 08/29/18 09:06 Dose: 50 mg Spironolactone (Aldactone -) 25 mg PO DAILY [facility] Last Admin: 08/29/18 09:06 Dose: 25 mg - Objective Vital Signs: Vital Signs Temperature 97.7 F 08/29/18 05:56 Pulse Rate 61 08/29/18 05:56 Respiratory Rate 17 08/29/18 05:56 Blood Pressure 103/68 08/29/18 05:56 O2 Sat by Pulse Oximetry (%) 97 08/28/18 21:00 Constitutional: Yes: Calm Eyes: Yes: Conjunctiva Clear HENT: Yes: Atraumatic Neck: Yes: Supple Cardiovascular: Yes: S1, S2 Respiratory: Yes: CTA Bilaterally Gastrointestinal: Yes: Soft Genitourinary: Yes: WNL Edema: Yes Edema: LLE: 1+, RLE: 1+ Neurological: Yes: Oriented Psychiatric: Yes: Oriented Labs: CBC, BMP 08/29/18 07:10 08/29/18 07:10 INR, PTT INR 1.87 (0.83-1.09) H 08/21/18 16:55 Problem List - Problems (1) CKD (chronic kidney disease) Code(s): N18.9 - CHRONIC KIDNEY DISEASE, UNSPECIFIED (2) Acute on chronic systolic CHF (congestive heart failure) Code(s): I50.23 - ACUTE ON CHRONIC SYSTOLIC (CONGESTIVE) HEART FAILURE Assessment/Plan Current Medications Generic Name Dose Route Start Last Admin Trade Name Freq PRN Reason Stop Dose Admin Acetaminophen 650 mg 08/24/18 17:27 08/29/18 10:08 Tylenol - PO 650 mg Q4H PRN Administration PAIN SCALE 1-5 Amiodarone HCl 200 mg 08/22/18 10:00 08/29/18 09:06 Cordarone - PO 200 mg DAILY [facility] Administration Apixaban 5 mg 08/22/18 10:00 08/29/18 09:06 Eliquis - PO 5 mg BID [facility] Administration Atorvastatin Calcium 20 mg 08/22/18 22:00 08/28/18 22:27 Lipitor - PO 20 mg HS [facility] Administration Ceftriaxone Sodium 2 gm/ 100 mls @ 200 mls/hr 08/25/18 14:30 08/29/18 09:06 Dextrose IVPB 200 mls/hr DAILY [facility] Administration Protocol Metronidazole 500 mg in 100 mls @ 100 mls/hr 08/26/18 18:00 08/29/18 11:04 Flagyl 500mg Premixed Ivpb - IVPB 100 mls/hr Q8H-IV [facility] Administration Metoprolol Succinate 50 mg 08/23/18 10:00 08/29/18 09:06 Toprol Xl - PO 50 mg DAILY [facility] Administration Spironolactone 25 mg 08/22/18 10:00 08/29/18 09:06 Aldactone - PO 25 mg DAILY [facility] Administration Impression 1. CKD 2. abd pain 3. htn 4. cad 5. abd hernia 6. hld Plan - will give another dose of IV lasix - restart torsemide 60 mg bid - baseline cell changer 2.2 - cardio follow up - monitor volume status - follow ua - pt to follow with Dr Block after discharge
[2018-08-29 12:47] VITALS: BMI 37.9
[2018-08-29] MEDS ORDERED: TORSEMIDE 20 MG TABLET (FP) PO SCH (14:00)
--- NOTE | 2018-08-29 14:39 | PN ---
Progress Note, Physician History of Present Illness: AWAKE, ALERT OOB IN CHAIR NO C/O LEG PAIN AFEBRILE - Current Medication List Current Medications: Active Medications Acetaminophen (Tylenol -) 650 mg PO Q4H PRN PRN Reason: PAIN SCALE 1-5 Last Admin: 08/29/18 10:08 Dose: 650 mg Amiodarone HCl (Cordarone -) 200 mg PO DAILY [facility] Last Admin: 08/29/18 09:06 Dose: 200 mg Apixaban (Eliquis -) 5 mg PO BID [facility] Last Admin: 08/29/18 09:06 Dose: 5 mg Atorvastatin Calcium (Lipitor -) 20 mg PO HS [facility] Last Admin: 08/28/18 22:27 Dose: 20 mg Ceftriaxone Sodium 2 gm/ (Dextrose) 100 mls @ 200 mls/hr IVPB DAILY [facility]; Protocol Last Admin: 08/29/18 09:06 Dose: 200 mls/hr Metronidazole (Flagyl 500mg Premixed Ivpb -) 500 mg in 100 mls @ 100 mls/hr IVPB Q8H-IV [facility] Last Admin: 08/29/18 11:04 Dose: 100 mls/hr Metoprolol Succinate (Toprol Xl -) 50 mg PO DAILY [facility] Last Admin: 08/29/18 09:06 Dose: 50 mg Spironolactone (Aldactone -) 25 mg PO DAILY [facility] Last Admin: 08/29/18 09:06 Dose: 25 mg Torsemide (Demadex -) 60 mg PO BIDLASIX [facility] Last Admin: 08/29/18 14:34 Dose: 60 mg - Objective Vital Signs: Vital Signs Temperature 97.7 F 08/29/18 05:56 Pulse Rate 61 08/29/18 05:56 Respiratory Rate 18 08/29/18 09:00 Blood Pressure 103/68 08/29/18 05:56 O2 Sat by Pulse Oximetry (%) 98 08/29/18 09:00 Constitutional: Yes: No Distress, Obese Cardiovascular: Yes: Regular Rate and Rhythm, S1, S2 Respiratory: Yes: CTA Bilaterally Gastrointestinal: Yes: Normal Bowel Sounds, Soft. No: Tenderness Extremities: Yes: Other (RESIDUAL INDURATION, SL ERYTHEMA L MEDIAL THIGH) Edema: LLE: 3+, RLE: 3+ Labs: CBC, BMP 08/29/18 07:10 08/29/18 07:10 INR, PTT INR 1.87 (0.83-1.09) H 08/21/18 16:55 Assessment/Plan CELLULITIS LE B/L IMPROVED LACTIC ACIDOSIS RESOLVED AZOTEMIA HX AVR MAY SUBSTITUTE KEFLEX 500MG PO BID NEXT 24H ELEVATION, DIURETICS
--- NOTE | 2018-08-29 17:20 | PN ---
Teaching Attending Note Name of Resident: Gurvinder Valdovinos ATTENDING PHYSICIAN STATEMENT I saw and evaluated the patient. I reviewed the resident's note and discussed the case with the resident. I agree with the resident's findings and plan as documented. SUBJECTIVE: Patient is comfortable with no acute distress. improving. OBJECTIVE: Vital Signs Temperature 98.0 F 08/29/18 14:50 Pulse Rate 63 08/29/18 14:50 Respiratory Rate 16 08/29/18 14:50 Blood Pressure 96/66 08/29/18 14:50 O2 Sat by Pulse Oximetry (%) 98 08/29/18 09:00 GENERAL: The patient is awake, alert, and fully oriented, in no acute distress. HEAD: Normal with no signs of trauma. EYES: PERRL, extraocular movements intact, sclera anicteric, conjunctiva clear. ENT: Ears normal, oropharynx clear without exudates, moist mucous membranes. NECK: Trachea midline, full range of motion, supple. LUNGS: Breath sounds equal, clear to auscultation bilaterally, no wheezes, no crackles, no accessory muscle use. HEART: Regular rate and rhythm, S1, S2 without murmur, rub or gallop. ABDOMEN: Soft, nontender, nondistended, normoactive bowel sounds, no guarding, no rebound, no hepatosplenomegaly, no masses. EXTREMITIES: 2+ pulses, warm, chronic changes, LLE positive for dressing , positive for erythema bl L>R, RLE non-tender w/ lymphedema, LLE: 3+, RLE: 3+ NEUROLOGICAL: Cranial nerves II through XII grossly intact. Normal speech, gait not observed. PSYCH: Normal mood, normal affect. SKIN: Warm, dry, normal turgor, WBC 6.3 K/mm3 (4.0-10.0) 08/29/18 07:10 RBC 4.36 M/mm3 (4.00-5.60) 08/29/18 07:10 Hgb 13.1 GM/dL (11.7-16.9) 08/29/18 07:10 Hct 40.1 % (35.4-49) 08/29/18 07:10 MCV 92.1 fl (80-96) 08/29/18 07:10 MCHC 32.7 g/dl (32.0-35.9) 08/29/18 07:10 RDW 18.4 % (11.9-15.9) H 08/29/18 07:10 Plt Count 166 K/MM3 (134-434) 08/29/18 07:10 MPV 8.4 fl (7.5-11.1) 08/29/18 07:10 CMP Sodium 138 mmol/L (136-145) 08/29/18 07:10 Potassium 4.0 mmol/L (3.5-5.1) 08/29/18 07:10 Chloride 102 mmol/L (98-107) 08/29/18 07:10 Carbon Dioxide 28 mmol/L (21-32) 08/29/18 07:10 Anion Gap 8 MMOL/L (8-16) 08/29/18 07:10 BUN 40 mg/dL (7-18) H 08/29/18 07:10 Creatinine 2.4 mg/dL (0.55-1.3) H 08/29/18 07:10 Random Glucose 94 mg/dL (74-106) 08/29/18 07:10 Calcium 9.3 mg/dL (8.5-10.1) 08/29/18 07:10 Total Bilirubin 1.5 mg/dL (0.2-1) H 08/29/18 07:10 AST 21 U/L (15-37) 08/29/18 07:10 ALT 18 U/L (13-61) 08/29/18 07:10 Alkaline Phosphatase 165 U/L (45-117) H 08/29/18 07:10 Total Protein 6.9 g/dl (6.4-8.2) 08/29/18 07:10 Albumin 3.0 g/dl (3.4-5.0) L 08/29/18 07:10 CARDIAC ENZYMES Troponin I 0.03 ng/ml (0.00-0.05) 08/21/18 16:55 Current Medications Generic Name Dose Route Start Last Admin Trade Name Freq PRN Reason Stop Dose Admin Acetaminophen 650 mg 08/24/18 17:27 08/29/18 10:08 Tylenol - PO 650 mg Q4H PRN Administration PAIN SCALE 1-5 Amiodarone HCl 200 mg 08/22/18 10:00 08/29/18 09:06 Cordarone - PO 200 mg DAILY [facility] Administration Apixaban 5 mg 08/22/18 10:00 08/29/18 09:06 Eliquis - PO 5 mg BID [facility] Administration Atorvastatin Calcium 20 mg 08/22/18 22:00 08/28/18 22:27 Lipitor - PO 20 mg HS [facility] Administration Cephalexin HCl 500 mg 08/30/18 10:00 Keflex - PO BID [facility] Ceftriaxone Sodium 2 gm/ 100 mls @ 200 mls/hr 08/25/18 14:30 08/29/18 09:06 Dextrose IVPB 08/30/18 06:00 200 mls/hr DAILY [facility] Administration Protocol Metronidazole 500 mg in 100 mls @ 100 mls/hr 08/26/18 18:00 08/29/18 11:04 Flagyl 500mg Premixed Ivpb - IVPB 08/30/18 06:00 100 mls/hr Q8H-IV [facility] Administration Metoprolol Succinate 50 mg 08/23/18 10:00 08/29/18 09:06 Toprol Xl - PO 50 mg DAILY [facility] Administration Spironolactone 25 mg 08/22/18 10:00 08/29/18 09:06 Aldactone - PO 25 mg DAILY [facility] Administration Torsemide 60 mg 08/29/18 14:00 08/29/18 14:34 Demadex - PO 60 mg BIDLASIX [facility] Administration Microbiology 08/22/18 19:00 Blood - Peripheral Venous Blood Culture - Final NO GROWTH AFTER 5 DAYS INCUBATION 08/22/18 19:15 Blood - Peripheral Venous Blood Culture - Final NO GROWTH AFTER 5 DAYS INCUBATION 08/22/18 10:56 Cellulitis Gram Stain - Final 08/22/18 10:56 Cellulitis Wound Culture - Final Serratia Marcescens Klebsiella Oxytoca Staphylococcus Aureus ASSESSMENT AND PLAN: Patient is a 67yo male with PMhx of CHF, AICD, A fib On Eliquis, LE venous stasis, abd wall hernia s/p Sx , aortic valve rupture during coronary thrombectomy, s/p AV replacement ( bioprosthetic ) who presented with abdominal pain and was found to have cellulitis of LE. # S/p Sepsis due to LE cellulitis: on Rocephin and Flagyl continue day #6, will switch to po keflex x 7 days 500mg po bid as per ID discussed with # ERIK on CKD: base line cr/2.2-->2.5-->2.4 improving today , nephro is on the case, US is negative # H/o Systolic heart failure: echo reviewed. EF 30-35% , will give a dose of lasix and revaluate on a daily basis # Severe chronic cholecystitis or acute cystic duct obstruction with cholelithiasis: no surgical intervention at this time as per surgeon. No surgical indication for lap mariela in this patient at this time as per surgeon Dr. Hickman. # Abd wall hernia: no strangulation on CT scan . # DM : SSI for now # H/o A fib: on eliquis , off dig , continue amiodarone DVT Px: Eliquis will discharge the patient to SNF
[2018-08-29 18:05] VITALS: BP 110/65; PULSE 65; TEMP 97.8
[2018-08-30] MEDS ORDERED: CEPHALEXIN MONOHYDRATE 500 MG CAPSULE (UD) PO SCH (10:00)
== END 2018-08-29 20:08 | DRG 291 ==
LOC: JER 14:40 → JERBED 08-22 00:02 → OBSVTOIN 08-22 00:43 → J4S 08-22 16:31
PROVIDERS: ADMIT Internal Medicine; ATTEND Internal Medicine
DX: I13.0 Hypertensive heart and chronic kidney disease with heart failure and stage 1 through stage 4 chronic kidney disease, or unspecified chronic kidney disease (principal); I50.23 Acute on chronic systolic (congestive) heart failure; N17.9 Acute kidney failure, unspecified; E87.1 Hypo-osmolality and hyponatremia; E46 Unspecified protein-calorie malnutrition; L03.115 Cellulitis of right lower limb; L03.116 Cellulitis of left lower limb; E87.2 Acidosis; K80.21 Calculus of gallbladder without cholecystitis with obstruction; J90 Pleural effusion, not elsewhere classified; L97.828 Non-pressure chronic ulcer of other part of left lower leg with other specified severity; K80.10 Calculus of gallbladder with chronic cholecystitis without obstruction; R18.8 Other ascites; I48.91 Unspecified atrial fibrillation; N18.9 Chronic kidney disease, unspecified; K42.9 Umbilical hernia without obstruction or gangrene; E78.5 Hyperlipidemia, unspecified; E66.9 Obesity, unspecified; Z68.37 Body mass index [BMI] 37.0-37.9, adult; I25.10 Atherosclerotic heart disease of native coronary artery without angina pectoris; I25.2 Old myocardial infarction; D64.9 Anemia, unspecified; F41.9 Anxiety disorder, unspecified; I49.9 Cardiac arrhythmia, unspecified; Z95.2 Presence of prosthetic heart valve; Z95.810 Presence of automatic (implantable) cardiac defibrillator
CPT/HCPCS: 36415; 71045-TC-FY; 74176-TC; 76705-TC; 76775-TC; 78226-TC; 80048; 80053; 80076; 80162; 82248; 83605; 83690; 83735; 83880; 84100; 84443; 84484; 85025; 85610; 85730; 86850; 86900; 86901; 87040; 87070; 87186; 87205; 93005; 93010; 93306-TC; 93925-TC; 93970-TC; 99284-25; A9537; G0378; G0480; J0131; J7030

== ENCOUNTER 2018-11-06 10:20 | Emergency (ER) | payer OTHER | END 2018-11-06 12:30 | disposition home or self-care (01) | LOC: JER 10:20 ==